=== PATIENT | female | born 1955 | race Two or more races ===

== ENCOUNTER 2017-12-06 18:41 | Emergency (ER) | payer SELFPAY ==
[~2017-12-06] VITALS: Ht 157.5 cm; Wt 77.7 kg
[2017-12-06] MEDS ORDERED: KETOROLAC TROMETH 30 MG/ML 1ML VIAL IV ONE (21:00)
[2017-12-06 21:17] LABS: Basophils # (auto) 0.1 uL; Eosinophils # (auto) 0.1 uL; Lymphocytes # (auto) 1.1 uL
[2017-12-06 21:18] LABS: Basophils % (auto) 1.3 % (0.0-2.0); Eosinophils % (auto) 1.4 % (0.0-7.0); Hematocrit 38.3 % (36.0-46.0); Hemoglobin 12.3 g/dL (12.2-16.2); Lymphocytes % (auto) 16.6 % (10.0-50.0); Mean Corpuscular Hemoglobin 25.4 pg (28.0-32.0); Mean Corpuscular Hgb Conc. 32.1 g/dL (32.0-36.0); Mean Corpuscular Volume 79.1 fL (80.0-100.0); Monocytes # (auto) 0.7 uL; Monocytes % (auto) 9.7 % (0.0-12.0); Neutrophils # (auto) 4.8 uL; Nucleated Red Blood Cells % 0.1 %; Platelet Count (auto) 222 10^3/uL (140-450); Red Blood Cells 4.84 10^6/uL (4.0-5.20); Red Cell Distribution Width 18.4 % (11.8-14.3); White Blood Cell 6.8 10^3/uL (4.4-10.8)
[2017-12-06 21:34] LABS: Albumin 3.6 g/dL (3.4-5.0); Anion Gap 11 (5-15); Blood Urea Nitrogen 46 mg/dL (7-18); Calcium 9.1 mg/dL (8.5-10.1); Carbon Dioxide 26 mmol/L (21-32); Chloride 88 mmol/L (98-107); Glucose 361 mg/dL (74-106); Sodium 125 mmol/L (136-145)
[2017-12-06 21:39] LABS: Alanine Aminotransferase 22 U/L (13-56); Alkaline Phosphatase 148 U/L (45-117); Aspartate Aminotransferase 24 U/L (15-37); BUN/Creatinine Ratio 31.9; Bilirubin, Total 0.8 mg/dL (0.2-1.0); GFR African American 47 mL/min; GFR Non-African American 39 mL/min; Total Protein 7.9 g/dL (6.4-8.2)
[2017-12-06 23:14] VITALS: BP 95/71
[2017-12-06] MEDS ORDERED: SODIUM CHLORIDE 0.9% 1,000 ML IV ONE (23:15)
== END 2017-12-07 00:08 | disposition home or self-care (01) ==
LOC: ER 18:41
DX: S22.31XA Fracture of one rib, right side, initial encounter for closed fracture (principal); M19.90 Unspecified osteoarthritis, unspecified site; M25.552 Pain in left hip; E11.9 Type 2 diabetes mellitus without complications; I10 Essential (primary) hypertension; I25.2 Old myocardial infarction; Z86.73 Personal history of transient ischemic attack (TIA), and cerebral infarction without residual deficits; W01.0XXA Fall on same level from slipping, tripping and stumbling without subsequent striking against object, initial encounter; Y93.89 Activity, other specified; Y99.8 Other external cause status; Y92.89 Other specified places as the place of occurrence of the external cause
CPT/HCPCS: 36415; 70450; 71045; 73030; 73502; 73562; 80053; 83880; 84484; 85025; 96374; 99285; J1885; J7030; 96361

== ENCOUNTER 2018-04-11 07:21 | Inpatient (IN) | payer MEDICAID ==
[~2018-04-11] VITALS: Ht 165.1 cm; Wt 99.1 kg
[~2018-04-11 07:21] MED LIST: ASPI-231 PO; ATOR20TA PO; CAR3125T PO; FURO40TA PO; LEVEMIR SC; PANT40TA2 PO
[2018-04-11] MEDS ORDERED: ASPirin 81 mg TAB PO ONE (07:45)
[2018-04-11] MEDS ORDERED: NITROGLYCERIN 0.4 MG SL TAB SL ONE (07:45)
[2018-04-11 08:23] LABS: Basophils # (auto) 0 uL; Eosinophils # (auto) 0 uL; Mean Corpuscular Hemoglobin 26.1 pg (28.0-32.0); White Blood Cell 7.9 10^3/uL (4.4-10.8)
[2018-04-11 08:25] LABS: Basophils % (auto) 0.4 % (0.0-2.0); Eosinophils % (auto) 0.4 % (0.0-7.0); Lymphocytes % (auto) 12.6 % (10.0-50.0); Mean Corpuscular Hgb Conc. 29.7 g/dL (32.0-36.0); Mean Corpuscular Volume 87.9 fL (80.0-100.0); Monocytes % (auto) 12.7 % (0.0-12.0); Neutrophils # (auto) 5.8 uL; Neutrophils % (auto) 73.9 % (37.0-80.0); Nucleated Red Blood Cells % 0.7 %
[2018-04-11 08:29] LABS: Platelet Count (auto) 174 10^3/uL (140-450); Red Cell Distribution Width 25.7 % (11.8-14.3)
[2018-04-11 08:35] LABS: INR 2.26 (0.9-1.15); Partial Thromboplastin Time 25.4 sec (23.78-33.04); Prothrombin Time 23.1 sec (9.27-12.13)
[2018-04-11 08:40] LABS: Calcium 9.1 mg/dL (8.5-10.1)
[2018-04-11 08:44] LABS: BUN/Creatinine Ratio 31.7; Bilirubin, Total 1.9 mg/dL (0.2-1.0); Total Protein 6.9 g/dL (6.4-8.2)
[2018-04-11 08:58] LABS: Potassium 5.7 mmol/L (3.5-5.1)
[2018-04-11] MEDS ORDERED: ALBUTEROL SULF 2.5 MG/0.5ML(0.5%) NEB SOLN NEB STA (09:09)
[2018-04-11] MEDS ORDERED: DEXTROSE (50%) 50ML SYRG IV ONE (09:15)
[2018-04-11] MEDS ORDERED: SODIUM BICARBONATE 8.4% INJ 50ML SYRINGE IV ONE (09:15)
[2018-04-11] MEDS ORDERED: CALCIUM GLUC 4.65meq/50ml D5AE 50 ML IV ONE (09:15)
[2018-04-11] MEDS ORDERED: InsuLIN REG 1unit/0.01ml Soln (100units/ml) IV ONE (09:15)
[2018-04-11] MEDS ORDERED: NITROGLYCERIN 0.4 MG SL TAB SL PRN (09:30)
[2018-04-11] MEDS ORDERED: DEXTROSE (50%) 50ML SYRG IV PRN (09:30)
[2018-04-11] MEDS ORDERED: MORPHINE SULFATE 4 MG/ML SYR/VIAL IV PRN (09:30)
[2018-04-11] MEDS: ASPirin-EC 81 mg tab PO SCH (10:00)
[2018-04-11] MEDS: CARVEDILOL 3.125 MG TAB PO SCH ×2 (10:15→21:54)
[2018-04-11] MEDS: PANTOPRAZOLE 40 MG TAB PO SCH (10:30)
[2018-04-11] MEDS: ACCU-CHEK COMFORT CURVE STRIP VI SCH ×3 (11:36→21:55)
[2018-04-11] MEDS: FUROSEMIDE 20 MG TAB PO SCH (11:40)
[2018-04-11] MEDS: InsuLIN REG 1unit/0.01ml Soln (100units/ml) SC SCH ×3 (11:40→21:55)
--- NOTE | 2018-04-11 12:43 | NUR ---
Telemetry admit from DYLLAN HINDSREINALDO admitted to Telemetry unit Room 295B. No report received. Patient oriented to Marilu June, RN primary RN, unit, room, bed, and unit policies regarding patient care and visiting hours. Patient now on continuous telemetry monitoring, tele box #HC 3 and telemetry reading on arrival to unit is SR 76 with BBB. Patient placed on bedside oxygen, weighed by bedscale and encouraged to call if she nees something. All questions and concerns addressed, patient verbalized understanding. Note: Patient speaks only Polish.
[2018-04-11 13:00] VITALS: BP 94/49
--- NOTE | 2018-04-11 13:00 | NUR ---
Patient has 2+ edema and redness to bilateral lower extremities. Skin to back, sacrum, and buttocks is clear.
--- NOTE | 2018-04-11 13:01 | NUR ---
Patient is wearing a diaper from home. Diaper is soaked with urine. Patient cleaned, repositioned. Call light in reach. Will continue to monitor.
[2018-04-11 14:59] VITALS: BP 94/49
--- NOTE | 2018-04-11 17:53 | NUR ---
Patient incontinent of urine. Patient cleaned and repositioned. Full linen change done. Call light in reach. Will continue to monitor.
[2018-04-11] MEDS: traMADol HCL 50 MG TAB PO PRN (19:03)
--- NOTE | 2018-04-11 19:45 | NUR ---
ASSUMED CARE, PT. AWAKE, [place]AST [place] SPEAK ONLY, NO C/O PAIN, NO SOB.
[2018-04-11] MEDS: ATORVASTATIN 20 MG TAB PO SCH (21:55)
[2018-04-11 22:05] VITALS: BP 93/56
[2018-04-12 05:33] LABS: Basophils # (auto) 0.1 uL; Eosinophils # (auto) 0.1 uL; Hemoglobin 10.2 g/dL (12.2-16.2); Mean Corpuscular Volume 84.5 fL (80.0-100.0); Monocytes # (auto) 0.6 uL
[2018-04-12 05:37] VITALS: BP 91/77
[2018-04-12 05:37] LABS: Basophils % (auto) 1.2 % (0.0-2.0); Eosinophils % (auto) 1.8 % (0.0-7.0); Hematocrit 32.5 % (36.0-46.0); Lymphocytes # (auto) 1.2 uL; Lymphocytes % (auto) 18.6 % (10.0-50.0); Mean Corpuscular Hemoglobin 26.6 pg (28.0-32.0); Mean Corpuscular Hgb Conc. 31.5 g/dL (32.0-36.0); Monocytes % (auto) 9.6 % (0.0-12.0); Neutrophils # (auto) 4.3 uL; Neutrophils % (auto) 68.8 % (37.0-80.0); Platelet Count (auto) 203 10^3/uL (140-450); Red Blood Cells 3.84 10^6/uL (4.0-5.20); White Blood Cell 6.2 10^3/uL (4.4-10.8)
[2018-04-12 05:51] LABS: Calcium 8.9 mg/dL (8.5-10.1)
[2018-04-12 05:58] LABS: Potassium 6.1 mmol/L (3.5-5.1); Uric Acid 11.4 mg/dL (2.6-6.0)
--- NOTE | 2018-04-12 05:59 | NUR ---
lab. called, pt. k- 6.1, called up hospitalist, waiting to call back.
[2018-04-12] MEDS: InsuLIN REG 1unit/0.01ml Soln (100units/ml) SC SCH ×4 (06:10→21:27)
[2018-04-12] MEDS: INSULIN LANTUS (GLARGINE) 1 /0.01ml (100units/ml) SC SCH (06:10)
[2018-04-12] MEDS: ACCU-CHEK COMFORT CURVE STRIP VI SCH ×4 (06:11→21:27)
--- NOTE | 2018-04-12 06:33 | NUR ---
still waiting for hospitalist to call back, re: pt. k- 6.1
--- NOTE | 2018-04-12 07:05 | NUR ---
hosp. called back, no order made, endorsed to preet agosto.
[2018-04-12] MEDS ORDERED: SODIUM BICARBONATE 8.4 % INJ 50ML VIAL IV ONE (07:15)
[2018-04-12] MEDS ORDERED: DEXTROSE (50%) 50ML SYRG IV ONE (07:15)
[2018-04-12] MEDS ORDERED: CALCIUM GLUC 4.65meq/50ml D5AE 50 ML IV ONE (07:15)
[2018-04-12] MEDS ORDERED: InsuLIN REG 1unit/0.01ml Soln (100units/ml) IV ONE (07:15)
[2018-04-12] MEDS ORDERED: SODIUM POLYSTYRENE SULF 15GM/60ml SUSP or POWDER PO ONE (07:15)
[2018-04-12] MEDS ORDERED: SODIUM POLYSTYRENE SULF 15 GM POWDER PO ONE (07:30)
--- NOTE | 2018-04-12 08:30 | NUR ---
Opening Shift Note Assumed care of patient, awake and alert. No S/S of distress/SOB or pain. Skin is warm and dry to touch, no s/s of hyperglycemia or hypoglycemia noted. Instructed on POC and to call for assist PRN, will continue to monitor for changes Q1hr and PRN.
[2018-04-12 09:00] VITALS: BP 87/62
[2018-04-12] MEDS: ASPirin-EC 81 mg tab PO SCH (09:19)
[2018-04-12] MEDS: FUROSEMIDE 20 MG TAB PO SCH (09:19)
[2018-04-12] MEDS: PANTOPRAZOLE 40 MG TAB PO SCH (09:19)
[2018-04-12] MEDS: CARVEDILOL 3.125 MG TAB PO SCH ×2 (09:19→21:26)
--- NOTE | 2018-04-12 11:30 | NUR ---
Dr. Dixon at bedside.
--- NOTE | 2018-04-12 12:00 | NUR ---
IV insertion IV access obtained, via clean sterile technique by inserting 22 gauge catheter at after attempt(s). IV secured properly. No trauma to site. Patient tolerated well. NOTE:
--- NOTE | 2018-04-12 12:00 | NUR ---
Dr. Iyer at bedside, will perform LHC tomorrow. Explained to the patient she will have to NPO AMN, patient verbalized understanding.
--- NOTE | 2018-04-12 14:00 | NUR ---
Dr. Rocha at bedside.
[2018-04-12 16:58] VITALS: BP 87/63
--- NOTE | 2018-04-12 19:45 | NUR ---
assumed care, pt. awake, eating her dinner, no c/o pain, repositioned pt. no sob.
[2018-04-12] MEDS: ATORVASTATIN 20 MG TAB PO SCH (21:27)
[2018-04-12 22:03] VITALS: BP 90/69
[2018-04-13 05:42] VITALS: BP 95/62
[2018-04-13] MEDS: InsuLIN REG 1unit/0.01ml Soln (100units/ml) SC SCH ×4 (06:08→21:59)
[2018-04-13] MEDS: INSULIN LANTUS (GLARGINE) 1 /0.01ml (100units/ml) SC SCH (06:09)
[2018-04-13] MEDS: ACCU-CHEK COMFORT CURVE STRIP VI SCH ×4 (06:09→21:27)
[2018-04-13 06:32] LABS: Basophils # (auto) 0 uL; Eosinophils # (auto) 0.1 uL; Hematocrit 32.4 % (36.0-46.0); Lymphocytes # (auto) 0.9 uL; White Blood Cell 5.5 10^3/uL (4.4-10.8)
[2018-04-13 06:39] LABS: Basophils % (auto) 0.7 % (0.0-2.0); Eosinophils % (auto) 1.6 % (0.0-7.0); Mean Corpuscular Hemoglobin 26.2 pg (28.0-32.0); Mean Corpuscular Hgb Conc. 30.9 g/dL (32.0-36.0); Monocytes # (auto) 0.6 uL; Monocytes % (auto) 11.1 % (0.0-12.0); Neutrophils # (auto) 3.9 uL; Neutrophils % (auto) 70.6 % (37.0-80.0); Nucleated Red Blood Cells % 0.9 %; Platelet Count (auto) 158 10^3/uL (140-450); Red Blood Cells 3.81 10^6/uL (4.0-5.20)
[2018-04-13 06:45] LABS: Potassium 3.7 mmol/L (3.5-5.1)
[2018-04-13 06:51] LABS: Albumin 2.9 g/dL (3.4-5.0); BUN/Creatinine Ratio 41.4; Bilirubin, Direct 1.1 mg/dL (0-0.2); Bilirubin, Total 1.6 mg/dL (0.2-1.0); Calcium 8.6 mg/dL (8.5-10.1); Phosphorus 4.1 mg/dL (2.5-4.90); Total Protein 6.5 g/dL (6.4-8.2)
--- NOTE | 2018-04-13 07:30 | NUR ---
Opening Shift Note Assumed care of patient, awake and alert x3. Unaware of situation. Patient follow commands and answers questions. No S/S of distress/SOB pt denies pain. Instructed on POC and to call for assist PRN, will continue to monitor for changes Q1hr and PRN. Fall precautions in place per protocol and pressure areas off loaded on pillows. Will cont care
[2018-04-13 09:00] VITALS: BP 89/64
[2018-04-13] MEDS: PANTOPRAZOLE 40 MG TAB PO SCH (10:00)
[2018-04-13] MEDS ORDERED: ENOXAPARIN SOD 40 MG/0.4 ML SYRINGE SC SCH ×2 (10:00)
[2018-04-13] MEDS: CARVEDILOL 3.125 MG TAB PO SCH ×2 (10:00→20:59)
[2018-04-13] MEDS: FUROSEMIDE 20 MG TAB PO SCH (10:00)
[2018-04-13] MEDS: ASPirin-EC 81 mg tab PO SCH (10:38)
--- NOTE | 2018-04-13 12:56 | NUR ---
Patient off floor taken down to culture media laboratory assistant care endorsed to Smitha oviedo. No distress noted on departure or sob.
[2018-04-13] MEDS ORDERED: ANGIOMAX 250 MG VIAL IV ONE (13:02)
[2018-04-13] MEDS ORDERED: fentaNYL CITRATE 100 MCG/2 ML VL ONE (13:02)
[2018-04-13] MEDS ORDERED: MIDAZOLAM HCL 1MG/1ML-2 ML VIAL ONE (13:02)
[2018-04-13] MEDS ORDERED: SODIUM CHL 0.9% 50 ML ONE (13:02)
[2018-04-13] MEDS ORDERED: ATROPINE SULF 1 MG/10ml SYR ONE (13:04)
[2018-04-13] MEDS ORDERED: EPINEPHrine HCL 1 MG/10 ML SYRG ONE (13:04)
[2018-04-13] MEDS ORDERED: LIDOCAINE 2%HCL (LOCAL ANESTH.) INJ 20ML MDV ONE (13:27)
[2018-04-13] MEDS ORDERED: IOHEXOL 350 MG/ML 100ML IJ ONE (13:27)
[2018-04-13 13:30] VITALS: BP 95/67
[2018-04-13] MEDS ORDERED: DOPamine 1600MCG/ML D5W 0 ML IV ONE (14:02)
[2018-04-13] MEDS ORDERED: NOREPINEPHRINE 8 MG/250ML KIT 0 ML IV ONE (14:02)
[2018-04-13] MEDS ORDERED: IODIXANOL 320MG/ML 100ML BTL IV ONE (14:05)
[2018-04-13] MEDS ORDERED: CLOPIDOGREL 300 MG TAB ONE (14:43)
--- NOTE | 2018-04-13 16:10 | NUR ---
Patient back from receiver/laborer patient back from process laboratory specialist, dressing to left groin noted c/d/i. Dorsalis pedis pulses palpable bilat. VSS. No s/s of distress or sob noted. Bed alarm on at all times. Patient instructed to not get up or bend leg at this time until 1644 as instructed by Wendy process laboratory specialist rn. Patient verbalized understanding. Will cont to monitor
[2018-04-13 17:32] VITALS: BP 86/66
[2018-04-13] MEDS ORDERED: SODIUM CHLORIDE 0.9% 500 ML IV ONE (18:45)
--- NOTE | 2018-04-13 19:10 | NUR ---
Patient care endorsed endorsed care to Anastacia oviedo, patient laying in bed in no acute distress or sob. Dressing assessed at bedside noted c/d/i. Call light within reach.
[2018-04-13] MEDS ORDERED: SODIUM CHLORIDE 0.9% 1,000 ML IV ONE (19:45)
[2018-04-13] MEDS: ATORVASTATIN 20 MG TAB PO SCH (21:26)
[2018-04-13] MEDS: traMADol HCL 50 MG TAB PO PRN (21:26)
[2018-04-13 21:30] VITALS: BP 87/54
[2018-04-14 05:00] VITALS: BP 100/65
[2018-04-14] MEDS: ACCU-CHEK COMFORT CURVE STRIP VI SCH ×4 (05:41→21:43)
[2018-04-14] MEDS: traMADol HCL 50 MG TAB PO PRN (06:04)
[2018-04-14] MEDS: INSULIN LANTUS (GLARGINE) 1 /0.01ml (100units/ml) SC SCH (06:05)
[2018-04-14] MEDS: InsuLIN REG 1unit/0.01ml Soln (100units/ml) SC SCH ×4 (06:05→21:44)
[2018-04-14 07:42] LABS: Eosinophils # (auto) 0.1 uL; Nucleated Red Blood Cells % 1.5 %; White Blood Cell 6.3 10^3/uL (4.4-10.8)
[2018-04-14 07:44] LABS: Basophils # (auto) 0 uL; Basophils % (auto) 0.4 % (0.0-2.0); Eosinophils % (auto) 0.9 % (0.0-7.0); Hematocrit 35.3 % (36.0-46.0); Hemoglobin 11.1 g/dL (12.2-16.2); Lymphocytes # (auto) 1.4 uL; Lymphocytes % (auto) 21.8 % (10.0-50.0); Mean Corpuscular Hemoglobin 26.9 pg (28.0-32.0); Mean Corpuscular Hgb Conc. 31.4 g/dL (32.0-36.0); Mean Corpuscular Volume 85.7 fL (80.0-100.0); Monocytes # (auto) 0.8 uL; Monocytes % (auto) 12.1 % (0.0-12.0); Neutrophils # (auto) 4.1 uL; Neutrophils % (auto) 64.8 % (37.0-80.0); Platelet Count (auto) 171 10^3/uL (140-450); Red Blood Cells 4.12 10^6/uL (4.0-5.20)
[2018-04-14 07:45] LABS: Red Cell Distribution Width 25.4 % (11.8-14.3)
[2018-04-14 07:59] LABS: Albumin 2.5 g/dL (3.4-5.0); Calcium 8.1 mg/dL (8.5-10.1); Potassium 4.1 mmol/L (3.5-5.1)
[2018-04-14 08:04] LABS: BUN/Creatinine Ratio 37.4; Bilirubin, Total 1.8 mg/dL (0.2-1.0); Total Protein 6.6 g/dL (6.4-8.2)
[2018-04-14 09:00] VITALS: BP 90/63
[2018-04-14] MEDS: ONDANSETRON HCL 4 MG/2 ML VIAL IV PRN ×2 (09:46→18:34)
[2018-04-14] MEDS: ASPirin-EC 81 mg tab PO SCH (09:47)
[2018-04-14] MEDS: CLOPIDOGREL BISULFATE 75 MG TAB PO SCH (09:47)
[2018-04-14] MEDS: PANTOPRAZOLE 40 MG TAB PO SCH (09:47)
[2018-04-14] MEDS: FUROSEMIDE 20 MG TAB PO SCH (09:48)
[2018-04-14] MEDS: CARVEDILOL 3.125 MG TAB PO SCH ×2 (09:48→21:43)
[2018-04-14 12:51] VITALS: BP 79/61
--- NOTE | 2018-04-14 13:23 | NUR ---
Spoke to Certified Performance Technologist MD Iyer aware of patients status including abnormal labs, VS including decreased BP and diuretics have been held. Per MD only hold diuretics is SBP <80mmHg. New orders to start patient on Dobutamine drip 3mc/kg/min. Will medicate as ordered
--- NOTE | 2018-04-14 14:42 | NUR ---
Weight pt assisted out of bed with P.T. Bed zero'd out. [facility]. Awaiting Dobutamine drip at this time
[2018-04-14] MEDS ORDERED: ANGIOMAX 250 MG VIAL IV ONE (14:48)
[2018-04-14] MEDS: DOBUTamine 1000MCG/ML 250 ML IV SCH (15:40)
[2018-04-14 16:58] VITALS: BP 89/63
--- NOTE | 2018-04-14 17:15 | NUR ---
Urine sample sent as ordered
[2018-04-14 18:29] LABS: Urine Bacteria FEW /hpf (None Seen); Urine Blood 2+ /uL (Negative); Urine Specific Gravity 1.031 (1.001-1.035); Urine WBC 79 /hpf (0 - 5); Urine WBC Clumps PRESENT /hpf (None Seen)
--- NOTE | 2018-04-14 18:35 | NUR ---
Spoke to Nephro MD Dixon at bedside, aware of patients status. New orders received for MD Gregory aware of pt's decreased BP and states pt needs dose ordered. Will medicate as ordered.
[2018-04-14] MEDS ORDERED: BUMETANIDE (0.25 MG/ML) INJ 10ML IV ONE (18:45)
--- NOTE | 2018-04-14 19:05 | NUR ---
Patient care endorsed endorsed care to Ronan oviedo. Patient sitting up in bed in no acute distress or sob noted. Call light within reach. Pt medicated with Bumex as ordered pt instructed to call for any s/s of hypotension. Pt verbalized understanding.
[2018-04-14] MEDS: ATORVASTATIN 20 MG TAB PO SCH (21:43)
[2018-04-14 21:48] VITALS: BP 96/66
[2018-04-15] MEDS ORDERED: diphenhdrAMINE HCL 25 MG CAP PO ONE (00:45)
[2018-04-15] MEDS: traMADol HCL 50 MG TAB PO PRN ×2 (01:46→10:22)
[2018-04-15 05:43] VITALS: BP 93/67
[2018-04-15] MEDS: DOBUTamine 1000MCG/ML 250 ML IV SCH (06:36)
[2018-04-15] MEDS: ACCU-CHEK COMFORT CURVE STRIP VI SCH ×3 (06:58→17:00)
[2018-04-15] MEDS: INSULIN LANTUS (GLARGINE) 1 /0.01ml (100units/ml) SC SCH (06:59)
[2018-04-15] MEDS: InsuLIN REG 1unit/0.01ml Soln (100units/ml) SC SCH ×4 (06:59→22:00)
[2018-04-15 07:13] LABS: Albumin 2.8 g/dL (3.4-5.0); Potassium 3.4 mmol/L (3.5-5.1)
--- NOTE | 2018-04-15 07:20 | NUR ---
Opening Shift Note Assumed care of patient, awake and alert. No S/S of distress/SOB or pain. Instructed on POC and to call for assist PRN. Fall precs in place per protocol. Call light within reach. Will continue to monitor for changes Q1hr and PRN.
[2018-04-15 07:27] LABS: Total Protein 6.6 g/dL (6.4-8.2)
[2018-04-15 09:00] VITALS: BP 88/62
[2018-04-15] MEDS: CLOPIDOGREL BISULFATE 75 MG TAB PO SCH (10:19)
[2018-04-15] MEDS: ASPirin-EC 81 mg tab PO SCH (10:19)
[2018-04-15] MEDS: FUROSEMIDE 20 MG TAB PO SCH (10:21)
[2018-04-15] MEDS: CARVEDILOL 3.125 MG TAB PO SCH ×2 (10:38→21:34)
[2018-04-15] MEDS: PANTOPRAZOLE 40 MG TAB PO SCH (10:38)
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
--- NOTE | 2018-04-15 12:26 | NUR ---
Urine bacterial Spoke to Juan Carlos in lab, he will process urine bacterial as ordered
[2018-04-15 13:00] VITALS: BP 98/72
[2018-04-15 13:24] LABS: Protein, Urine 34.3 mg/dL (0.0-11.9)
--- NOTE | 2018-04-15 14:23 | NUR ---
NUTRITION ASSESSMENT NOTES Please refer to link notes of nutrition screen form filed under the intervention section of the plan of care for further details. Est. Needs: 1750 kcal to 2150 kcal (20-25 kcal/kgBW), 86 gms to 103 gms pro (1.0-1.2 gms/kgBW). Will continue to monitor pertinent labs and reassess nutrient need prn Thank you. Addendum: 04/15/18 at [address] Amended: Links added.
[2018-04-15] MEDS: ONDANSETRON HCL 4 MG/2 ML VIAL IV PRN (16:51)
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
[2018-04-15 17:06] VITALS: BP 98/63
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
[2018-04-15] MEDS: BUMETANIDE (0.25MG/ML) 4 ML VIAL IV SCH (18:09)
--- NOTE | 2018-04-15 19:00 | NUR ---
Patient care endorsed endorsed care to Ally rn, patient laying in bed with fall precs in place per protocol and call light within reach. No s/s of acute distress or sob noted.
[2018-04-15] MEDS: ATORVASTATIN 20 MG TAB PO SCH (22:31)
[2018-04-15] MEDS: HEPARIN SODIUM (PORCINE) 5000 UNITS/ML 1ML VIAL SC SCH (22:34)
[2018-04-16] MEDS: DOBUTamine 1000MCG/ML 250 ML IV SCH ×2 (00:36→15:38)
[2018-04-16] MEDS: ACCU-CHEK COMFORT CURVE STRIP VI SCH ×5 (00:43→22:06)
[2018-04-16 05:43] VITALS: BP 92/74
[2018-04-16] MEDS: BUMETANIDE (0.25MG/ML) 4 ML VIAL IV SCH ×2 (06:57→18:15)
[2018-04-16] MEDS: HEPARIN SODIUM (PORCINE) 5000 UNITS/ML 1ML VIAL SC SCH ×3 (06:58→22:05)
[2018-04-16] MEDS: InsuLIN REG 1unit/0.01ml Soln (100units/ml) SC SCH ×4 (07:00→22:00)
[2018-04-16] MEDS: INSULIN LANTUS (GLARGINE) 1 /0.01ml (100units/ml) SC SCH (07:00)
--- NOTE | 2018-04-16 08:00 | NUR ---
Opening Shift Note Assumed care of patient, awake and alert. No S/S of distress/SOB or pain. Instructed on POC and to call for assist PRN, will continue to monitor for changes Q1hr and PRN.
[2018-04-16 08:49] VITALS: BP 96/58
[2018-04-16] MEDS: CARVEDILOL 3.125 MG TAB PO SCH ×2 (10:00→22:00)
[2018-04-16] MEDS: CLOPIDOGREL BISULFATE 75 MG TAB PO SCH (10:26)
[2018-04-16] MEDS: PANTOPRAZOLE 40 MG TAB PO SCH (10:26)
[2018-04-16] MEDS: ASPirin-EC 81 mg tab PO SCH (10:26)
[2018-04-16] MEDS: FLUCONAZOLE 200MG/100ML 100 ML IV SCH (10:26)
--- NOTE | 2018-04-16 11:00 | NUR ---
POTASSIUM LEVEL DR MAURER MADE AWARE OF PT'S POTASSIUM LEVEL 3.4 FROM YESTERDAY. NO POTASSIUM REPLACEMENT WAS NOTED.
--- NOTE | 2018-04-16 11:30 | NUR ---
Dozier catheter insertion Patient assessed and determined to be in need of dozier catheter. Order obtained from MD. Patient educated on catheter and reason for insertion. All questions answered. Dozier catheter 16 guage Maltese inserted with clean sterile technique. Patient tolerated well.
--- NOTE | 2018-04-16 11:45 | NUR ---
@[address] [place] [address] was placed by student RN.
--- NOTE | 2018-04-16 12:13 | NUR ---
@1133 - Dr. Rocha is at bedside with the patient.
[2018-04-16] MEDS ORDERED: HEPARIN SODIUM (PORCINE) 5000 UNITS/ML 1ML VIAL ONE (14:04)
--- NOTE | 2018-04-16 15:00 | NUR ---
PAGED DR MAURER RE: POTASSIUM LEVEL. WAITING FOR CALL BACK.
--- NOTE | 2018-04-16 16:00 | NUR ---
TURN/ REPOSITIONING PT CALLED STATING THAT SHE WAS SUPPOSED TO TURN EVERY 2 HOURS AND NEED SOMEONE TO TURN HER. UPON ASSISTING PT, IT WAS NOTED THAT PT IS ABLE TO TURN HERSELF. SOON WE TRIED TO TURN HER PT TURNED HERSELF ALL THE WAY TO HER RIGHT SIDE WITHOUT ANY ASSISTANCE. PT WAS INFORMED THAT SINCE SHE CAN TURN ON HER OWN, SHE NEEDS TO DO IT OFTEN WITHOUT WAITING FOR ANYONE TO TURN HER. PT VERBALIZED UNDERSTANDING.
[2018-04-16 17:03] VITALS: BP 98/52
--- NOTE | 2018-04-16 18:30 | NUR ---
PAGED HOSPITALIST RE: POTASSIUM LEVEL. SPOKE TO DR. ARTEAGA. NEW ORDER RECEIVED.
[2018-04-16] MEDS ORDERED: POTASSIUM CHL 20 Meq TABLET PO ONE (20:00)
--- NOTE | 2018-04-16 20:00 | NUR ---
Opening Shift Note Assumed care of patient, patient is awake and alert x4, primarily Citizen Of [place] speaking. No S/S of distress/SOB or pain on 2LNC. Instructed on POC and to call for assist PRN, will continue to monitor for changes Q1hr and PRN. Call light within reach. Bed alarm remains on. Patient with Bowens catheter patent and draining to gravity. SCD's in place to bilateral lower extremities, with Pershing boots in place. Patient on turn every 2 hour schedule with minimum assist. Dobutamine drip infusing to left wrist per orders, IV is patent and asymptomatic. Left groin site is benign s/p LHC on 04/13, no bruising or bleeding noted. Ecchymosis to patients abdomen and bilateral upper extremities noted. 3+ pitting edema to patients abdomen, back side and lower extremities. Will continue to monitor.
[2018-04-16 22:00] VITALS: BP 104/64
[2018-04-16] MEDS: ATORVASTATIN 20 MG TAB PO SCH (22:03)
[2018-04-17 05:00] VITALS: BP 91/61
--- NOTE | 2018-04-17 05:00 | NUR ---
TOTAL LINEN CHANGE PROVIDED TO PATIENT. NEW GOWN PROVIDED. PATIENT REQUESTED TO HAVE LINENS CHANGED. PATIENT BACKSIDE CLEANED AND ZGUARD APPLIED TO SACRUM, NO WOUNDS PRESENT. PATIENT TURNED TO RIGHT SIDE AND PILLOW PLACED ON BACK FOR SUPPORT. LOPEZ CATHETER REMAINS IN PLACE PATENT AND DRAINING TO GRAVITY, NASRIN CARE PROVIDED. BED ALARM REMAINS ON, CALL LIGHT WITHIN REACH.
--- NOTE | 2018-04-17 05:20 | NUR ---
PATIENT REFUSING TO WEAR REJI BOOTS. PATIENT STATES SHE WANTS THEM TO BE TAKEN OFF. INSTRUCTED PATIENT ON IMPORTANCE OF REJI BOOTS TO PREVENT WOUNDS, PATIENT VERBALIZES UNDERSTANDING AND STATES SHE STILL WANTS THEM REMOVED OR "I WILL TAKE THEM OFF MYSELF". REJI BOOTS REMOVED AT THIS TIME. JYOTI ANDERSEN AT BEDSIDE FOR TRANSLATION.
[2018-04-17] MEDS: BUMETANIDE (0.25MG/ML) 4 ML VIAL IV SCH ×2 (06:30→17:51)
[2018-04-17] MEDS: INSULIN LANTUS (GLARGINE) 1 /0.01ml (100units/ml) SC SCH (06:31)
[2018-04-17] MEDS: ACCU-CHEK COMFORT CURVE STRIP VI SCH ×4 (06:31→22:00)
[2018-04-17] MEDS: InsuLIN REG 1unit/0.01ml Soln (100units/ml) SC SCH ×4 (06:31→22:00)
[2018-04-17] MEDS: HEPARIN SODIUM (PORCINE) 5000 UNITS/ML 1ML VIAL SC SCH ×3 (06:32→22:30)
[2018-04-17 06:40] LABS: Basophils # (auto) 0 uL; Eosinophils # (auto) 0.1 uL; Hemoglobin 10.2 g/dL (12.2-16.2); Neutrophils # (auto) 3.4 uL
[2018-04-17 06:44] LABS: Basophils % (auto) 0.2 % (0.0-2.0); Eosinophils % (auto) 1.5 % (0.0-7.0); Hematocrit 33.4 % (36.0-46.0); Lymphocytes # (auto) 0.9 uL; Lymphocytes % (auto) 17.9 % (10.0-50.0); Mean Corpuscular Hemoglobin 25.9 pg (28.0-32.0); Mean Corpuscular Hgb Conc. 30.5 g/dL (32.0-36.0); Mean Corpuscular Volume 84.9 fL (80.0-100.0); Monocytes # (auto) 0.5 uL; Monocytes % (auto) 9.7 % (0.0-12.0); Neutrophils % (auto) 70.7 % (37.0-80.0); Nucleated Red Blood Cells % 0.4 %; Platelet Count (auto) 144 10^3/uL (140-450); Red Blood Cells 3.93 10^6/uL (4.0-5.20); White Blood Cell 4.8 10^3/uL (4.4-10.8)
[2018-04-17 06:51] LABS: Potassium 3.9 mmol/L (3.5-5.1)
[2018-04-17 06:59] LABS: Albumin 2.9 g/dL (3.4-5.0); BUN/Creatinine Ratio 30.5; Calcium 8.3 mg/dL (8.5-10.1); Total Protein 6.6 g/dL (6.4-8.2)
[2018-04-17 07:19] LABS: Red Cell Distribution Width 24.4 % (11.8-14.3)
[2018-04-17 08:00] VITALS: BP 84/57
--- NOTE | 2018-04-17 08:00 | NUR ---
Opening Shift Note Assumed care of patient, awake and alert and verbally responsive. Respiratory even and unlabored. No S/S of distress/SOB or pain. Skin is warm and dry to touch. Instructed on POC and to call for assist PRN, will continue to monitor for changes Q1hr and PRN.
--- NOTE | 2018-04-17 08:10 | NUR ---
Lab reported patient has ESBL in urine, VITALY Germain) notified , will inform hospitalist. Signed: 04/17/18 at 0819 by MARTA JAIN RN
--- NOTE | 2018-04-17 08:15 | NUR ---
Contact Isolation placed, patient notified.
[2018-04-17] MEDS: DOBUTamine 1000MCG/ML 250 ML IV SCH (09:36)
[2018-04-17] MEDS: FLUCONAZOLE 200MG/100ML 100 ML IV SCH (09:36)
[2018-04-17] MEDS: PANTOPRAZOLE 40 MG TAB PO SCH (09:36)
[2018-04-17] MEDS: CLOPIDOGREL BISULFATE 75 MG TAB PO SCH (09:36)
[2018-04-17] MEDS: ASPirin-EC 81 mg tab PO SCH (09:36)
[2018-04-17] MEDS: CARVEDILOL 3.125 MG TAB PO SCH ×2 (09:37→22:00)
--- NOTE | 2018-04-17 15:00 | NUR ---
Dr. Oropeza at bedside, made aware of patient has ESBL in urine.
[2018-04-17] MEDS ORDERED: ERTAPENEM SOD INJ 1 GM in SODIUM CHL 0.9% 50 ML IV ONE (16:15)
[2018-04-17 17:00] VITALS: BP 94/57
--- NOTE | 2018-04-17 17:38 | NUR ---
assessment Patient is a 62 year old female who is alert and oriented. Thi MONTES is translating for us. Prior to admission patient lived home with her daughter Darya and family and functioned with assistance. Patient has a fww and a wheelchair for home use. Patients daughter Darya is her caregiver. Per ss consult SNF placement. Patient has no payer source for rehab. Patient informed me her daughter treats her good, both patient and daughter get frustrated with the demands of patients new medical condition of not being able to ambulate. Daughter is getting tired and patient is angry. I have provided stephie Lackey with resources for coping skills and also [facility] resource for caregiver help. patient will return home on discharge. Addendum: 04/17/18 at 1743 by Destiney Mir Amended: Links added.
--- NOTE | 2018-04-17 19:30 | NUR ---
open note assumed care of pt, pt eyes closed breathing even and unlabored at time of entering room. pt on 2L NC, no s/s distress noted. IV to L hand running dobutamine @15.5ml/hr. dozier in place for i&o. call light in reach will round q1hr and as needed.
[2018-04-17 21:50] VITALS: BP 93/72
[2018-04-17] MEDS: ATORVASTATIN 20 MG TAB PO SCH (22:30)
[2018-04-18] VITALS (7 sets, daily range): BP systolic 78–103; BP diastolic 52–75
[2018-04-18] MEDS: DOBUTamine 1000MCG/ML 250 ML IV SCH ×3 (02:06→22:40)
[2018-04-18] MEDS: BUMETANIDE (0.25MG/ML) 4 ML VIAL IV SCH ×2 (06:27→17:55)
[2018-04-18] MEDS: InsuLIN REG 1unit/0.01ml Soln (100units/ml) SC SCH ×4 (06:28→22:13)
[2018-04-18] MEDS: INSULIN LANTUS (GLARGINE) 1 /0.01ml (100units/ml) SC SCH (06:28)
[2018-04-18] MEDS: HEPARIN SODIUM (PORCINE) 5000 UNITS/ML 1ML VIAL SC SCH ×3 (06:28→22:35)
[2018-04-18] MEDS: ACCU-CHEK COMFORT CURVE STRIP VI SCH ×4 (06:28→22:12)
--- NOTE | 2018-04-18 09:00 | NUR ---
Opening Shift Note Assumed care of patient, awake and alert. No S/S of distress/SOB or pain. Skin is warm and dry to touch, no s/s of hyperglycemia or hyperglycemia noted. Instructed on POC and to call for assist PRN, will continue to monitor for changes Q1hr and PRN.
[2018-04-18] MEDS: ERTAPENEM SOD INJ 1 GM in SODIUM CHL 0.9% 50 ML IV SCH (09:31)
[2018-04-18] MEDS: FLUCONAZOLE 200MG/100ML 100 ML IV SCH (09:31)
[2018-04-18] MEDS: ASPirin-EC 81 mg tab PO SCH (09:32)
[2018-04-18] MEDS: PANTOPRAZOLE 40 MG TAB PO SCH (09:32)
[2018-04-18] MEDS: CLOPIDOGREL BISULFATE 75 MG TAB PO SCH (09:32)
[2018-04-18] MEDS: CARVEDILOL 3.125 MG TAB PO SCH ×2 (09:37→21:55)
[2018-04-18] MEDS: SPIRONOLACTONE 25 MG TAB PO SCH (11:44)
--- NOTE | 2018-04-18 13:51 | NUR ---
Nutrition Follow-up Notes Wt.: 91.6 kg as of yesterday. Pt's asleep in isolation room, no immediate family member at bedside when rounded this morning. Pt's no signs of distress noted earlier, currently on Consistent Standard Carb: 60 gms/meal, Cardiac: Low Chol, Low Fat diet with fair PO intake aeb 60% ave. consumed meals in last 2.5 days. Est. Needs: 1750 kcal to 2150 kcal (20-25 kcal/kgBW), 86 gms to 103 gms pro (1.0-1.2 gms/kgBW). Will continue to monitor pertinent labs and reassess nutrient need prn Labs: POC GLuc 169 H; 04/17/18 Gluc 137 H, Na 130 L, Cl 92 L, BUN 43 H, Cr 1.41 H, Ca 8.3 L, Tot sarah 2.0 H, ALP 154 H, Alb 2.9 L; HbA1c 9.1 H Skin: Osbaldo scale 17, mod risk, pt's posterior sacrum slow to candie redness per jail keeper. GI: Pt had 1 BM this morning per jail keeper. PES: Altered nutrition related lab values r/t current/chronic medical condition aeb hyperglycemia, hyponatremia, hypokalemia,, hypochloremia, elev. renal labs, HbA1c, ALP, hyperbilirubinemia, hypocalcemia and mod hypoalbuminemia Obesity r/t food intake more than body requirement aeb 152% IBW, BMI 31.7 kg/m2 and increased body adiposity Will continue to monitor PO intake, skin status, pertinent labs and weight trend. F/u in 3 to 5 days. Rec.: 1.) If Albumin level continues trending down with improved renal labs, consider Prostat 1 pkt BID. 2.) Continue close supervision and feeding assistance with meals. 3.) If pt's PO intake inadequate (<75%), consider Glucerna Shakes 1 carton BID 4.) Refer to CDE/RD for further nutrition educ. and weight monitoring upon discharge. 5.) Continue current plan of care..
[2018-04-18] MEDS ORDERED: AMPICILLIN INJ 1 GM in SODIUM CHL 0.9% 50 ML IV ONE (14:30)
--- NOTE | 2018-04-18 20:34 | NUR ---
Received report from Kerri MONTES Assuming care of patient at this time, patient sleeping, no distress noted, respirations even and unlabored on 2L NC. Call light within reach, patient on contact isolation for esbl urine
[2018-04-18] MEDS: AMPICILLIN INJ 1 GM in SODIUM CHL 0.9% 50 ML IV SCH (22:06)
[2018-04-18] MEDS: ATORVASTATIN 20 MG TAB PO SCH (22:12)
[2018-04-18] MEDS: ONDANSETRON HCL 4 MG/2 ML VIAL IV PRN (22:35)
--- NOTE | 2018-04-18 22:35 | NUR ---
Rounds Patient awake and alert x4. Patient complains of nausea, medicated as ordered. No S/S of distress/SOB, denies pain. Will continue to monitor changes q1hr and PRN.
[2018-04-19] MEDS: AMPICILLIN INJ 1 GM in SODIUM CHL 0.9% 50 ML IV SCH ×4 (02:40→21:42)
--- NOTE | 2018-04-19 02:46 | NUR ---
Rounds Patient sleeping, respirations even and unlabored. No S/S of distress/SOB on room air. Will continue to monitor changes q1hr and PRN.
[2018-04-19 05:00] VITALS: BP 100/71
[2018-04-19] MEDS: HEPARIN SODIUM (PORCINE) 5000 UNITS/ML 1ML VIAL SC SCH ×3 (06:00→22:27)
[2018-04-19 06:35] LABS: Basophils # (auto) 0 uL; Eosinophils # (auto) 0.1 uL; Mean Corpuscular Volume 82.8 fL (80.0-100.0); Monocytes # (auto) 0.5 uL
[2018-04-19 06:37] LABS: Basophils % (auto) 0.4 % (0.0-2.0); Eosinophils % (auto) 1.9 % (0.0-7.0); Hematocrit 30.9 % (36.0-46.0); Hemoglobin 9.8 g/dL (12.2-16.2); Lymphocytes % (auto) 21.3 % (10.0-50.0); Mean Corpuscular Hemoglobin 26.3 pg (28.0-32.0); Mean Corpuscular Hgb Conc. 31.7 g/dL (32.0-36.0); Monocytes % (auto) 11.6 % (0.0-12.0); Neutrophils % (auto) 64.8 % (37.0-80.0); Nucleated Red Blood Cells % 0.2 %; Platelet Count (auto) 144 10^3/uL (140-450); Red Blood Cells 3.73 10^6/uL (4.0-5.20); White Blood Cell 4.6 10^3/uL (4.4-10.8)
[2018-04-19] MEDS: INSULIN LANTUS (GLARGINE) 1 /0.01ml (100units/ml) SC SCH (06:38)
[2018-04-19] MEDS: InsuLIN REG 1unit/0.01ml Soln (100units/ml) SC SCH ×4 (06:38→21:17)
[2018-04-19] MEDS: ACCU-CHEK COMFORT CURVE STRIP VI SCH ×4 (06:39→21:17)
[2018-04-19 06:41] LABS: Red Cell Distribution Width 24.5 % (11.8-14.3)
[2018-04-19] MEDS: BUMETANIDE (0.25MG/ML) 4 ML VIAL IV SCH ×2 (06:42→18:00)
[2018-04-19 06:48] LABS: BUN/Creatinine Ratio 27.3; Calcium 8.5 mg/dL (8.5-10.1); Magnesium 1.8 mg/dL (1.6-2.6); Potassium 3.6 mmol/L (3.5-5.1)
[2018-04-19] MEDS: traMADol HCL 50 MG TAB PO PRN ×2 (06:52→21:42)
[2018-04-19] MEDS: ONDANSETRON HCL 4 MG/2 ML VIAL IV PRN (06:52)
--- NOTE | 2018-04-19 07:15 | NUR ---
Endorsed care to Geraldine MONTES
--- NOTE | 2018-04-19 07:50 | NUR ---
Opening Shift Note Assumed care of patient, awake, alert, and oriented x4. Patient has 3/10 complaints of pain in lower extremities. Patient is on room air with no S/S of distress/SOB. Patient has IV in left hand 22g saline locked and flushing well, patient tolerating well. Patient has IV in right forearm 22g running Dobutamine at 15 mL/hr, patient tolerating well. Patient has SCDs. Patient has dozier patent and draining clear yellow urine. Instructed on POC and to call for assist PRN, will continue to monitor for changes Q1hr and PRN. Bed in lowest locked position, call light within reach. Bed alarm on.
[2018-04-19 08:00] VITALS: BP 99/64
[2018-04-19] MEDS: PANTOPRAZOLE 40 MG TAB PO SCH (09:36)
[2018-04-19] MEDS: ASPirin-EC 81 mg tab PO SCH (09:36)
[2018-04-19] MEDS: CLOPIDOGREL BISULFATE 75 MG TAB PO SCH (09:36)
[2018-04-19] MEDS: FLUCONAZOLE 200MG/100ML 100 ML IV SCH (09:36)
[2018-04-19] MEDS: SPIRONOLACTONE 25 MG TAB PO SCH (09:36)
[2018-04-19] MEDS: ERTAPENEM SOD INJ 1 GM in SODIUM CHL 0.9% 50 ML IV SCH (09:36)
[2018-04-19] MEDS: CARVEDILOL 3.125 MG TAB PO SCH (09:37)
[2018-04-19 13:00] VITALS: BP 83/53
[2018-04-19 15:08] LABS: INR 1.94 (0.9-1.15)
[2018-04-19] MEDS ORDERED: MAGNESIUM SULFATE 1GM/100ML 100 ML IV ONE (15:15)
--- NOTE | 2018-04-19 17:09 | NUR ---
BLOOD PRESSURE PATIENT BLOOD PRESSURE 77/55 HR 79, RECHECK 72/50. PAGED COMMUNITY ORGANIZATION AIDE HOSPITALIST. WAITING FOR CALL BACK.
[2018-04-19 17:14] VITALS: BP 77/55
[2018-04-19] MEDS ORDERED: DOBUTamine 1000MCG/ML 250 ML IV SCH (17:30)
--- NOTE | 2018-04-19 17:33 | NUR ---
HOSPITALIST RECEIVED CALL FROM CRISTOPHER MARTIN REGARDING PATIENT BLOOD PRESSURE 77/55 HR 79 RECHECK 72/50. PER HOSPITALITY SPECIALIST, COREG TO BE STOPPED AND DOBUTAMINE CHANGED TO 2.5MCG. ORDERS READ BACK AND VERIFIED.
--- NOTE | 2018-04-19 17:34 | NUR ---
IV insertion IV access obtained, via clean sterile technique by inserting 22 gauge catheter at left forearm after 1 attempt. IV secured properly. No trauma to site. Patient tolerated well.
--- NOTE | 2018-04-19 17:35 | NUR ---
IV removal IV DC'd from right wrist with clean sterile technique, catheter fully intact. Pressure dressing applied to site. Patient tolerated well.
--- NOTE | 2018-04-19 18:30 | NUR ---
DOBUTAMINE DRIP DOBUTAMINE DRIP PLACED AT 13.74ML/HR PER MD ORDER.
[2018-04-19] MEDS: DOBUTamine 1000MCG/ML 250 ML IV SCH (18:46)
--- NOTE | 2018-04-19 18:46 | NUR ---
END OF SHIFT PATIENT RESTING IN BED. NO S/S OF DISTRESS. INSTRUCTED PATIENT TO CALL PRN. BED IN LOWEST LOCKED POSITION, CALL LIGHT WITHIN REACH. ENDORSED CARE TO JYOTI BRANCH.
[2018-04-19 20:00] VITALS: BP 92/67
--- NOTE | 2018-04-19 20:25 | NUR ---
Opening Shift Note Assumed care of patient, awake and alert x4. No S/S of distress/SOB or pain. Instructed on POC and to call for assistance PRN, will continue to monitor for changes Q1hr and PRN. Bowens draining clear yellow urine.
[2018-04-19] MEDS: ATORVASTATIN 20 MG TAB PO SCH (21:42)
--- NOTE | 2018-04-19 21:42 | NUR ---
Pain Management Pt medicated for c/o of pain generalized. Pt repositioned for comfort with aid of pillows, patient able to turn with minimum assistance, heat packs given for comfort. Will continue to monitor.
[2018-04-19 22:00] VITALS: BP_SYST 118; BP_SYST 92; BP_DIAS 67; BP_DIAS 69
[2018-04-20] MEDS: AMPICILLIN INJ 1 GM in SODIUM CHL 0.9% 50 ML IV SCH ×4 (03:03→21:31)
[2018-04-20] MEDS: ONDANSETRON HCL 4 MG/2 ML VIAL IV PRN (03:31)
[2018-04-20 05:00] VITALS: BP 80/55
[2018-04-20] MEDS: HEPARIN SODIUM (PORCINE) 5000 UNITS/ML 1ML VIAL SC SCH ×3 (05:55→21:32)
[2018-04-20] MEDS: BUMETANIDE (0.25MG/ML) 4 ML VIAL IV SCH ×3 (05:56→17:40)
[2018-04-20 06:54] LABS: Hematocrit 32.5 % (36.0-46.0); Hemoglobin 9.9 g/dL (12.2-16.2)
[2018-04-20] MEDS: INSULIN LANTUS (GLARGINE) 1 /0.01ml (100units/ml) SC SCH (07:00)
[2018-04-20] MEDS: InsuLIN REG 1unit/0.01ml Soln (100units/ml) SC SCH ×4 (07:00→21:33)
[2018-04-20] MEDS: ACCU-CHEK COMFORT CURVE STRIP VI SCH ×4 (07:08→21:32)
[2018-04-20 07:09] LABS: Potassium 3.8 mmol/L (3.5-5.1)
[2018-04-20 07:20] LABS: Calcium 8.7 mg/dL (8.5-10.1); Magnesium 2.2 mg/dL (1.6-2.6)
--- NOTE | 2018-04-20 07:20 | NUR ---
OPENING NOTE ASSUMED CARE OF PT. PT IS LAYING ON BED, AWAKE. HOB LOW-FOWLERS. PT IS A&O X4. ON 2 LPM/NC, O2 SATURATION 100%. NO SIGNS OF SOB/DISTRESS. ON TELE #HC3, HR 92. SAFETY PRECAUTIONS IN PLACE INCLUDING, BED SET TO LOWEST POSITION/LOCKED. BEDSIDE RAILS UP X2. BED ALARM ON. CALL LIGHT WITHIN REACH. INSTRUCTED PT TO CALL FOR ASSISTANCE. DISCUSSED POC WITH PT. PT VERBALIZED UNDERSTANDING. WILL CONTINUE TO MONITOR Q 1HR AND PRN.
[2018-04-20 08:47] VITALS: BP 90/64
[2018-04-20] MEDS: CLOPIDOGREL BISULFATE 75 MG TAB PO SCH (09:17)
[2018-04-20] MEDS: SPIRONOLACTONE 25 MG TAB PO SCH (09:17)
[2018-04-20] MEDS: PANTOPRAZOLE 40 MG TAB PO SCH (09:17)
[2018-04-20] MEDS: ASPirin-EC 81 mg tab PO SCH (09:17)
[2018-04-20] MEDS: ERTAPENEM SOD INJ 1 GM in SODIUM CHL 0.9% 50 ML IV SCH (09:18)
[2018-04-20] MEDS: FLUCONAZOLE 200MG/100ML 100 ML IV SCH (09:18)
[2018-04-20] MEDS: DOBUTamine 1000MCG/ML 250 ML IV SCH (12:28)
[2018-04-20 13:00] VITALS: BP 94/69
[2018-04-20 17:16] VITALS: BP 98/58
--- NOTE | 2018-04-20 17:40 | NUR ---
PATIENT REFUSED BUMEX. EDUCATED THE PATIENT ON RISK AND BENEFITS. PATIENT VERBALIZED UNDERSTANDING. PATIENT STILL REFUSED.
--- NOTE | 2018-04-20 19:19 | NUR ---
ENDORSED CARE TO JYOTI CARR.
[2018-04-20] MEDS: ATORVASTATIN 20 MG TAB PO SCH (21:32)
[2018-04-20 22:00] VITALS: BP 91/64
[2018-04-21] MEDS: AMPICILLIN INJ 1 GM in SODIUM CHL 0.9% 50 ML IV SCH ×4 (03:01→21:05)
[2018-04-21 05:01] VITALS: BP 95/64
[2018-04-21] MEDS: HEPARIN SODIUM (PORCINE) 5000 UNITS/ML 1ML VIAL SC SCH ×3 (05:34→22:00)
[2018-04-21] MEDS: InsuLIN REG 1unit/0.01ml Soln (100units/ml) SC SCH ×4 (05:36→22:00)
[2018-04-21] MEDS: ACCU-CHEK COMFORT CURVE STRIP VI SCH ×4 (05:37→22:00)
[2018-04-21] MEDS: INSULIN LANTUS (GLARGINE) 1 /0.01ml (100units/ml) SC SCH (05:37)
[2018-04-21] MEDS: BUMETANIDE (0.25MG/ML) 4 ML VIAL IV SCH ×2 (05:55→17:53)
--- NOTE | 2018-04-21 07:00 | NUR ---
OPENING SHIFT NOTE ASSUMED CARE OF THE PATIENT FROM THE TISSUE TECHNICIAN RN. THE PATIENT IS SLEEPING, NO SIGNS OR SYMPTOMS OF DISTRESS. THE PATIENT'S CALL LIGHT IS WITHIN REACH AND BED IS IN THE LOWEST, LOCKED POSITION. WILL ROUND HOURLY AND CONTINUE TO MONITOR.
[2018-04-21 08:20] VITALS: BP 101/53
[2018-04-21] MEDS: ONDANSETRON HCL 4 MG/2 ML VIAL IV PRN (09:30)
[2018-04-21] MEDS: DOBUTamine 1000MCG/ML 250 ML IV SCH (09:42)
[2018-04-21] MEDS: SPIRONOLACTONE 25 MG TAB PO SCH (09:43)
[2018-04-21] MEDS: PANTOPRAZOLE 40 MG TAB PO SCH (09:43)
[2018-04-21] MEDS: CLOPIDOGREL BISULFATE 75 MG TAB PO SCH (09:43)
[2018-04-21] MEDS: ASPirin-EC 81 mg tab PO SCH (09:43)
[2018-04-21] MEDS: ERTAPENEM SOD INJ 1 GM in SODIUM CHL 0.9% 50 ML IV SCH (12:21)
[2018-04-21 13:00] VITALS: BP 112/64
[2018-04-21 17:00] VITALS: BP 95/65
[2018-04-21] MEDS: DEMECLOCYCLINE HCL 150 MG TAB PO SCH ×2 (18:00→23:33)
--- NOTE | 2018-04-21 19:10 | NUR ---
assumed care, pt. awake, marshallese speak only, relatives at bedside, no c/o pain, no sob.
[2018-04-21] MEDS: ATORVASTATIN 20 MG TAB PO SCH (21:59)
[2018-04-21 22:00] VITALS: BP 94/61
[2018-04-22] MEDS: DOBUTamine 1000MCG/ML 250 ML IV SCH ×2 (01:21→04:16)
[2018-04-22] MEDS: AMPICILLIN INJ 1 GM in SODIUM CHL 0.9% 50 ML IV SCH ×4 (02:34→20:39)
[2018-04-22 05:00] VITALS: BP 99/64
[2018-04-22] MEDS: DEMECLOCYCLINE HCL 150 MG TAB PO SCH ×4 (05:59→23:35)
[2018-04-22] MEDS: HEPARIN SODIUM (PORCINE) 5000 UNITS/ML 1ML VIAL SC SCH ×3 (06:00→21:38)
[2018-04-22] MEDS: BUMETANIDE (0.25MG/ML) 4 ML VIAL IV SCH (06:14)
[2018-04-22] MEDS: InsuLIN REG 1unit/0.01ml Soln (100units/ml) SC SCH ×4 (06:15→21:39)
[2018-04-22] MEDS: ACCU-CHEK COMFORT CURVE STRIP VI SCH ×4 (06:15→21:39)
[2018-04-22] MEDS: INSULIN LANTUS (GLARGINE) 1 /0.01ml (100units/ml) SC SCH (06:15)
[2018-04-22 06:58] LABS: Basophils # (auto) 0 uL; Eosinophils # (auto) 0.1 uL; Hemoglobin 10.1 g/dL (12.2-16.2); Lymphocytes # (auto) 0.9 uL; Mean Corpuscular Hemoglobin 25.7 pg (28.0-32.0); Red Blood Cells 3.94 10^6/uL (4.0-5.20)
[2018-04-22 07:07] LABS: Basophils % (auto) 0.7 % (0.0-2.0); Eosinophils % (auto) 1.8 % (0.0-7.0); Hematocrit 32.7 % (36.0-46.0); Monocytes # (auto) 0.6 uL; Monocytes % (auto) 10.3 % (0.0-12.0); Neutrophils # (auto) 3.9 uL; Neutrophils % (auto) 71.2 % (37.0-80.0); Nucleated Red Blood Cells % 0.4 %; Platelet Count (auto) 130 10^3/uL (140-450); White Blood Cell 5.5 10^3/uL (4.4-10.8)
[2018-04-22 07:08] LABS: Albumin 2.7 g/dL (3.4-5.0); Calcium 8.4 mg/dL (8.5-10.1); Magnesium 2.2 mg/dL (1.6-2.6); Potassium 4.2 mmol/L (3.5-5.1)
[2018-04-22 07:13] LABS: BUN/Creatinine Ratio 22.8; Bilirubin, Total 1.5 mg/dL (0.2-1.0); Total Protein 6.3 g/dL (6.4-8.2)
[2018-04-22 07:15] LABS: Red Cell Distribution Width 23.8 % (11.8-14.3)
[2018-04-22 08:53] VITALS: BP 88/54
--- NOTE | 2018-04-22 09:30 | NUR ---
Patient is refusing to put the SCD's on.
--- NOTE | 2018-04-22 09:30 | NUR ---
Patient sitting in chair, was assisted by 3 persons.
[2018-04-22] MEDS: CLOPIDOGREL BISULFATE 75 MG TAB PO SCH (10:00)
[2018-04-22] MEDS: PANTOPRAZOLE 40 MG TAB PO SCH (10:00)
[2018-04-22] MEDS: ASPirin-EC 81 mg tab PO SCH (10:00)
[2018-04-22] MEDS: SPIRONOLACTONE 25 MG TAB PO SCH (10:00)
--- NOTE | 2018-04-22 10:00 | NUR ---
Patient was put back to bed by physical therapist with maximum assist.
[2018-04-22] MEDS: ERTAPENEM SOD INJ 1 GM in SODIUM CHL 0.9% 50 ML IV SCH (10:01)
--- NOTE | 2018-04-22 10:50 | NUR ---
Son at bedside.
[2018-04-22 12:00] VITALS: BP 89/66
[2018-04-22 17:00] VITALS: BP 86/62
--- NOTE | 2018-04-22 19:00 | NUR ---
Closing note Patient resting in bed, no signs of distress noted.
--- NOTE | 2018-04-22 19:15 | NUR ---
ASSUMED CARE, PT. AWAKE, NO C/O PAIN, REPOSITIONED PT. NO SOB.
[2018-04-22] MEDS: ATORVASTATIN 20 MG TAB PO SCH (21:38)
[2018-04-22 22:00] VITALS: BP 93/62
[2018-04-23] MEDS: AMPICILLIN INJ 1 GM in SODIUM CHL 0.9% 50 ML IV SCH ×4 (02:33→20:31)
[2018-04-23] MEDS: DOBUTamine 1000MCG/ML 250 ML IV SCH (03:08)
[2018-04-23 05:00] VITALS: BP 98/66
[2018-04-23] MEDS: HEPARIN SODIUM (PORCINE) 5000 UNITS/ML 1ML VIAL SC SCH ×3 (05:59→21:30)
[2018-04-23] MEDS: DEMECLOCYCLINE HCL 150 MG TAB PO SCH ×3 (06:00→18:10)
[2018-04-23] MEDS: INSULIN LANTUS (GLARGINE) 1 /0.01ml (100units/ml) SC SCH (06:07)
[2018-04-23] MEDS: InsuLIN REG 1unit/0.01ml Soln (100units/ml) SC SCH ×4 (06:08→21:32)
[2018-04-23] MEDS: ACCU-CHEK COMFORT CURVE STRIP VI SCH ×4 (06:08→21:32)
[2018-04-23 06:39] LABS: Albumin 2.7 g/dL (3.4-5.0); Calcium 8.7 mg/dL (8.5-10.1); Potassium 4.1 mmol/L (3.5-5.1)
[2018-04-23 06:43] LABS: Bilirubin, Total 1.6 mg/dL (0.2-1.0); Phosphorus 3.3 mg/dL (2.5-4.90); Total Protein 6.3 g/dL (6.4-8.2); Uric Acid 9.8 mg/dL (2.6-6.0)
[2018-04-23 09:01] VITALS: BP 103/63
[2018-04-23] MEDS: SPIRONOLACTONE 25 MG TAB PO SCH (09:03)
[2018-04-23] MEDS: PANTOPRAZOLE 40 MG TAB PO SCH (09:03)
[2018-04-23] MEDS: CLOPIDOGREL BISULFATE 75 MG TAB PO SCH (09:04)
[2018-04-23] MEDS: ASPirin-EC 81 mg tab PO SCH (09:04)
[2018-04-23] MEDS: BUMETANIDE 1 MG TAB PO SCH (09:04)
[2018-04-23] MEDS: ERTAPENEM SOD INJ 1 GM in SODIUM CHL 0.9% 50 ML IV SCH (11:46)
--- NOTE | 2018-04-23 12:30 | NUR ---
Patient had a small bowel movement, was washed and changed. Positioned comfortably. Elevated lower extremities as lower extremities is swollen. Patient refused SCD's. Full bed linen changed as well.
[2018-04-23 13:00] VITALS: BP 98/54
--- NOTE | 2018-04-23 15:16 | NUR ---
Nutrition Follow-up Notes Wt.: 91.6 kg as of yesterday. Pt's in isolation room, on oxygen via nasal cannula, asleep, no immediate family member at bedside during rounds this morning. Pt's no signs of distress noted earlier, currently on Consistent Standard Carb: 60 gms/meal, Cardiac: Low Chol, Low Fat diet with inadequate PO intake aeb <60% ave. consumed meals (x6) in last 2.5 days. Est. Needs: 1750 kcal to 2150 kcal (20-25 kcal/kgBW), 86 gms to 103 gms pro (1.0-1.2 gms/kgBW). Will continue to monitor pertinent labs and reassess nutrient need prn Labs: Gluc 130 H, Na 131 L, Cl 95 L, BUN 42 H, Cr 1.82 H, Ca 9.8 H, Tot sarah 1.6 H, ALT 11 L, ALP 127 H, Tpro 6.3 L, Alb 2.7 L; HbA1c 9.1 H Skin: Osbaldo scale 17, mod risk, pt's posterior sacrum slow to candie redness per corncob pipe manufacturing supervisor. GI: Pt had 1 BM this morning per corncob pipe manufacturing supervisor. PES: Altered nutrition related lab values r/t current/chronic medical condition aeb hyperglycemia, hyponatremia, hypokalemia,, hypochloremia, elev. renal labs, HbA1c, ALP, hyperbilirubinemia, hypocalcemia and mod hypoalbuminemia Obesity r/t food intake more than body requirement aeb 152% IBW, BMI 31.7 kg/m2 and increased body adiposity Will continue to monitor PO intake, skin status, pertinent labs and weight trend. F/u in 3 to 5 days. Rec.: 1.) If Albumin level continues trending down with improved renal labs, consider Prostat 1 pkt BID. 2.) Continue close supervision and feeding assistance with meals. 3.) If pt's PO intake inadequate (<75%), consider Glucerna Shakes 1 carton BID 4.) Refer to CDE/RD for further nutrition educ. and weight monitoring upon discharge. 5.) Continue current plan of care..
[2018-04-23 17:10] VITALS: BP 90/61
[2018-04-23] MEDS: Glucerna Carbsteady SHAKE Vanilla 8oz PO SCH (18:00)
--- NOTE | 2018-04-23 18:00 | NUR ---
SPOKE TO FAMILY, STATES PATIENT HAS NO PRIMARY DOCTOR.
--- NOTE | 2018-04-23 18:54 | NUR ---
CLOSING NOTE PATIENT RESTING IN BED, NO SIGNS OF DISTRESS NOTED. FAMILY AT BEDSIDE.
--- NOTE | 2018-04-23 19:10 | NUR ---
assumed care, pt. awake, no c/o pain, no sob.
[2018-04-23] MEDS: ATORVASTATIN 20 MG TAB PO SCH (21:30)
[2018-04-23 22:00] VITALS: BP 90/64
[2018-04-24] MEDS: DOBUTamine 1000MCG/ML 250 ML IV SCH ×2 (01:29→15:00)
[2018-04-24] MEDS: AMPICILLIN INJ 1 GM in SODIUM CHL 0.9% 50 ML IV SCH ×4 (03:04→22:24)
[2018-04-24 05:00] VITALS: BP 103/66
[2018-04-24] MEDS: DEMECLOCYCLINE HCL 150 MG TAB PO SCH ×4 (05:54→18:00)
[2018-04-24] MEDS: HEPARIN SODIUM (PORCINE) 5000 UNITS/ML 1ML VIAL SC SCH ×4 (05:54→22:25)
[2018-04-24] MEDS: InsuLIN REG 1unit/0.01ml Soln (100units/ml) SC SCH ×4 (06:07→22:00)
[2018-04-24] MEDS: INSULIN LANTUS (GLARGINE) 1 /0.01ml (100units/ml) SC SCH (06:07)
[2018-04-24] MEDS: ACCU-CHEK COMFORT CURVE STRIP VI SCH ×4 (06:08→22:48)
[2018-04-24 06:40] LABS: Albumin 2.6 g/dL (3.4-5.0); BUN/Creatinine Ratio 21.5; Calcium 8.4 mg/dL (8.5-10.1); Potassium 4.1 mmol/L (3.5-5.1)
[2018-04-24 06:43] LABS: Bilirubin, Total 1.4 mg/dL (0.2-1.0); Total Protein 6.1 g/dL (6.4-8.2)
--- NOTE | 2018-04-24 07:00 | NUR ---
Opening Shift Note Assumed care of patient, awake, alert, and oriented x3. No S/S of distress/SOB or pain. IV in left forearm 22 gauge asymptomatic, intact, patent, and infusing dobutamine at 13.74 mL/hour. Bed locked and in lowest position and call light is within reach. Instructed on POC and to call for assist PRN, and patient verbalized understanding to the best of her ability. Will continue to monitor for changes Q1hr and PRN.
[2018-04-24] MEDS: Glucerna Carbsteady SHAKE Vanilla 8oz PO SCH ×2 (08:00→18:00)
[2018-04-24 09:00] VITALS: BP 90/63
[2018-04-24] MEDS: PANTOPRAZOLE 40 MG TAB PO SCH (09:37)
[2018-04-24] MEDS: ASPirin-EC 81 mg tab PO SCH (09:37)
[2018-04-24] MEDS: CLOPIDOGREL BISULFATE 75 MG TAB PO SCH (09:37)
[2018-04-24] MEDS: SPIRONOLACTONE 25 MG TAB PO SCH (09:38)
[2018-04-24] MEDS: BUMETANIDE 1 MG TAB PO SCH (10:00)
--- NOTE | 2018-04-24 12:00 | NUR ---
PATIENT REFUSED ACCUCHECK. PATIENT REFUSED BLOOD SUGAR CHECK AT 1130. NO DISTRESS NOTED AT THIS TIME. PATIENT RESTING COMFORTABLY IN BED.
[2018-04-24 13:00] VITALS: BP 80/67
[2018-04-24] MEDS: ERTAPENEM SOD INJ 1 GM in SODIUM CHL 0.9% 50 ML IV SCH (14:00)
--- NOTE | 2018-04-24 14:00 | NUR ---
PATIENT REFUSED HEPARIN AT 1400.
[2018-04-24] MEDS ORDERED: DOBUTamine 1000MCG/ML 250 ML IV SCH (14:45)
[2018-04-24 17:00] VITALS: BP 77/63
--- NOTE | 2018-04-24 20:14 | NUR ---
received report from gerald;madison oviedo poc reviewed
[2018-04-24 22:00] VITALS: BP 92/66
[2018-04-24] MEDS: ATORVASTATIN 20 MG TAB PO SCH (22:25)
[2018-04-24] MEDS: traMADol HCL 50 MG TAB PO PRN (22:47)
--- NOTE | 2018-04-25 01:30 | NUR ---
pts iv d/c'd, leaking at site, pt is a hard stick
--- NOTE | 2018-04-25 02:04 | NUR ---
new iv 22g left hand dobutamine infusing as ordered
--- NOTE | 2018-04-25 03:03 | NUR ---
turned and repositioned with hob up, call light within reach bed alarm intact,
[2018-04-25] MEDS: DEMECLOCYCLINE HCL 150 MG TAB PO SCH ×4 (04:12→17:29)
[2018-04-25] MEDS: AMPICILLIN INJ 1 GM in SODIUM CHL 0.9% 50 ML IV SCH ×4 (04:12→21:11)
[2018-04-25 05:39] VITALS: BP 81/55
[2018-04-25] MEDS: LEVOTHYROXINE SODIUM 25 MCG TAB PO SCH (05:58)
[2018-04-25] MEDS: traMADol HCL 50 MG TAB PO PRN ×2 (05:58→13:04)
[2018-04-25] MEDS: INSULIN LANTUS (GLARGINE) 1 /0.01ml (100units/ml) SC SCH (05:58)
[2018-04-25] MEDS: ACCU-CHEK COMFORT CURVE STRIP VI SCH ×4 (05:59→22:54)
[2018-04-25] MEDS: InsuLIN REG 1unit/0.01ml Soln (100units/ml) SC SCH ×4 (05:59→22:00)
[2018-04-25] MEDS: HEPARIN SODIUM (PORCINE) 5000 UNITS/ML 1ML VIAL SC SCH ×3 (06:06→22:54)
[2018-04-25 06:46] LABS: BUN/Creatinine Ratio 21.3; Calcium 8.4 mg/dL (8.5-10.1); Potassium 4.4 mmol/L (3.5-5.1)
--- NOTE | 2018-04-25 07:00 | NUR ---
report given to am nurse poc reciewed
[2018-04-25 08:00] VITALS: BP 94/63
[2018-04-25 08:08] VITALS: BP 94/63
[2018-04-25] MEDS: BUMETANIDE 1 MG TAB PO SCH (10:00)
[2018-04-25] MEDS: SPIRONOLACTONE 25 MG TAB PO SCH (10:00)
[2018-04-25] MEDS: Glucerna Carbsteady SHAKE Vanilla 8oz PO SCH ×2 (11:53→18:23)
[2018-04-25] MEDS: PANTOPRAZOLE 40 MG TAB PO SCH (11:54)
[2018-04-25] MEDS: CLOPIDOGREL BISULFATE 75 MG TAB PO SCH (11:54)
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
[2018-04-25] MEDS: ERTAPENEM SOD INJ 1 GM in SODIUM CHL 0.9% 50 ML IV SCH (12:52)
[2018-04-25] MEDS: ASPirin-EC 81 mg tab PO SCH (12:52)
[2018-04-25 13:00] VITALS: BP 93/59
[2018-04-25] MEDS: MIDODRINE HCL 10 MG TAB PO SCH ×2 (13:04→18:23)
--- NOTE | 2018-04-25 14:30 | NUR ---
Cleansed paulina area/ buttocks with warm water and patted with dry washcloth. Applied zguard cream and Optifoam. Patient tolerated well.
--- NOTE | 2018-04-25 14:30 | NUR ---
Complete Bed linen change with [facility]'s help. Patient tolerated well.
[2018-04-25 17:00] VITALS: BP 94/60
--- NOTE | 2018-04-25 17:52 | NUR ---
MIDLINE placement Patient/Patient significant other educated on need for PICC line placement. All risks and benefits explained and all questions and concerns addressed prior to procedure. Noted past medical history and allergies with no contraindications. INR and Plt counts within acceptable range. 4 fr MIDLINE inserted via right basilic vein using [employer] US and Tip Location System. Sterile technique with maximum barrier precautions utilized. Blood return obtained from the single lumen and it flushed easily with NS using proper technique. MIDLINE secured with Stat-lock; biodisc and occlusive dressing applied. Less than 5ml EBL noted during procedure. MIDLINE 20cm internally w/ 0cm externally. *Baseline Arm Circumference 33cm at 1cm above insertion site. MIDLINE lot # [id number]. Note:
--- NOTE | 2018-04-25 17:54 | NUR ---
OK to use MIDLINE Twila Perez notified now OK to use MIDLINE.
[2018-04-25] MEDS: DOBUTamine 1000MCG/ML 250 ML IV SCH (18:22)
--- NOTE | 2018-04-25 18:41 | NUR ---
End of shift note: Patient comfortably sleeping in bed, no c/o pain. No s/s of distress/sob noted or stated. Bed at lowest position and call light within reach. Will endorse care to NOC RN.
[2018-04-25 22:00] VITALS: BP 96/65
[2018-04-25] MEDS: ATORVASTATIN 20 MG TAB PO SCH (22:00)
[2018-04-25] MEDS ORDERED: HEPARIN SODIUM (PORCINE) 5000 UNITS/ML 1ML VIAL ONE (22:38)
[2018-04-26] VITALS (7 sets, daily range): BP systolic 82–102; BP diastolic 50–64
[2018-04-26] MEDS: AMPICILLIN INJ 1 GM in SODIUM CHL 0.9% 50 ML IV SCH ×4 (03:32→21:09)
[2018-04-26] MEDS: DEMECLOCYCLINE HCL 150 MG TAB PO SCH ×4 (06:00→18:00)
[2018-04-26] MEDS: MIDODRINE HCL 10 MG TAB PO SCH ×3 (06:00→18:00)
[2018-04-26] MEDS: HEPARIN SODIUM (PORCINE) 5000 UNITS/ML 1ML VIAL SC SCH ×3 (06:44→22:00)
[2018-04-26] MEDS: ACCU-CHEK COMFORT CURVE STRIP VI SCH ×4 (06:45→22:32)
[2018-04-26] MEDS: InsuLIN REG 1unit/0.01ml Soln (100units/ml) SC SCH ×4 (06:46→22:00)
[2018-04-26] MEDS: LEVOTHYROXINE SODIUM 25 MCG TAB PO SCH (06:46)
[2018-04-26] MEDS: INSULIN LANTUS (GLARGINE) 1 /0.01ml (100units/ml) SC SCH (06:46)
[2018-04-26 07:04] LABS: BUN/Creatinine Ratio 21.7; Calcium 8.4 mg/dL (8.5-10.1); Potassium 4.8 mmol/L (3.5-5.1)
--- NOTE | 2018-04-26 07:32 | NUR ---
Opening Shift Note Assumed care of patient comfortably sleeping, no S/S of distress/SOB or pain. Breath sounds even and unlabored. Will continue to monitor for changes Q1hr and PRN.
[2018-04-26] MEDS: Glucerna Carbsteady SHAKE Vanilla 8oz PO SCH ×2 (08:00→18:00)
[2018-04-26] MEDS: BUMETANIDE 1 MG TAB PO SCH (10:00)
[2018-04-26] MEDS: SPIRONOLACTONE 25 MG TAB PO SCH (10:00)
--- NOTE | 2018-04-26 11:16 | NUR ---
Nutrition Consult and Follow-up Notes Wt.: 99.1 kg based on bed scale as of yesterday. Noted 7.5 kg weight gain in last 4 days likely d/t ? fluid retention aeb Ascites, positive I & Os for past few days. Pt's in isolation room, on oxygen via nasal cannula, asleep, no immediate family member at bedside when rounded this morning. Pt's no signs of distress noted earlier, currently on Pureed Consistent Standard Carb: 60 gms/meal, Cardiac: Low Chol, Low Fat diet with Glucerna Shakes 1 carton BID, has inadequate PO intake aeb <50% ave. consumed meals (x6) in last 3 days.d/t pt refused, per nursing. Est. Needs: 1750 kcal to 2150 kcal (20-25 kcal/kgBW), 69 gms to 86 gms pro (0.8-1.0 gm /kgBW). Will continue to monitor pertinent labs and reassess nutrient need prn Labs: Na 134 L, Cl 97 L, BUN 50 H, Cr 2.30 H, Ca 8.4 H, Tpro 6.1 L, Alb 2.6 L; HbA1c 9.1 H Skin: Osbaldo scale 15, mod risk, pt's posterior sacrum slow to candie redness per parts facilitator. GI: Pt had 2x BM 04/23/18 per parts facilitator. PES: Altered nutrition related lab values r/t current/chronic medical condition aeb hyperglycemia, hyponatremia, hypokalemia,, hypochloremia, elev. renal labs, HbA1c, ALP, hyperbilirubinemia, hypocalcemia and mod hypoalbuminemia Obesity r/t food intake more than body requirement aeb 152% IBW, BMI 31.7 kg/m2 and increased body adiposity Will continue to monitor PO intake, skin status, pertinent labs and weight trend. F/u in 3 to 5 days. Rec.: 1.) Continue close supervision and feeding assistance with meals. 2.) If pt's PO intake inadequate (<75%), consider appetite stimulant prn to improve appetite. 3.) If renal labs continue trending up, consider Renal Specific: 70 gms pro in addition to current therapeutic diet. 4.) If Albumin level continues trending down with improved renal labs, consider Prostat 1 pkt BID. 5.) Refer to CDE/RD for further nutrition educ. and weight monitoring upon discharge. 6.) Continue current plan of care.. Thank you for this consult.
[2018-04-26] MEDS: ASPirin-EC 81 mg tab PO SCH (12:00)
[2018-04-26] MEDS: ERTAPENEM SOD INJ 1 GM in SODIUM CHL 0.9% 50 ML IV SCH (12:00)
[2018-04-26] MEDS: CLOPIDOGREL BISULFATE 75 MG TAB PO SCH (12:01)
[2018-04-26] MEDS: PANTOPRAZOLE 40 MG TAB PO SCH (12:01)
--- NOTE | 2018-04-26 12:16 | NUR ---
Pt refusing to get out of bed. Pt states that she is extremely fatigued today. Advised patient will chk back later. Addendum: 04/26/18 at 1217 by Lily Washburn PT Amended: Links added.
[2018-04-26] MEDS: DOBUTamine 1000MCG/ML 250 ML IV SCH (16:37)
--- NOTE | 2018-04-26 19:15 | NUR ---
OPEN SHIFT NOTE PATIENT IS ALERT AND ORIENTED X 4, ON 1L NASAL CANNULA. PATIENT HAS SCD'S ON BILATERALLY DUE TO BED REST. MIDLINE IS INTACT AND PATENT AND LEFT HAND 22 GAUGE IS INTACT AND PATENT. POC DISCUSSED AND QUESTIONS ANSWERED, BED IS LOCKED IN LOWEST POSITION WITH SIDE RAILS X3 PER PATIENTS REQUEST. CALL LIGHT IS WITHIN REACH. WILL CONTINUE TO ROUND Q1 HR AND PRN.
[2018-04-26] MEDS: ATORVASTATIN 20 MG TAB PO SCH (22:00)
[2018-04-27] MEDS: AMPICILLIN INJ 1 GM in SODIUM CHL 0.9% 50 ML IV SCH ×4 (03:09→21:00)
[2018-04-27 05:00] VITALS: BP 96/66
[2018-04-27] MEDS: MIDODRINE HCL 10 MG TAB PO SCH ×3 (05:56→18:05)
[2018-04-27] MEDS: DEMECLOCYCLINE HCL 150 MG TAB PO SCH ×5 (05:56→23:59)
[2018-04-27] MEDS: HEPARIN SODIUM (PORCINE) 5000 UNITS/ML 1ML VIAL SC SCH ×3 (05:57→21:58)
[2018-04-27 06:09] LABS: BUN/Creatinine Ratio 23.4; Calcium 8.5 mg/dL (8.5-10.1); Potassium 5.2 mmol/L (3.5-5.1)
[2018-04-27] MEDS: ACCU-CHEK COMFORT CURVE STRIP VI SCH ×4 (06:19→21:58)
[2018-04-27] MEDS: InsuLIN REG 1unit/0.01ml Soln (100units/ml) SC SCH ×4 (06:19→21:58)
[2018-04-27] MEDS: INSULIN LANTUS (GLARGINE) 1 /0.01ml (100units/ml) SC SCH (06:20)
[2018-04-27] MEDS: LEVOTHYROXINE SODIUM 25 MCG TAB PO SCH (06:57)
--- NOTE | 2018-04-27 07:50 | NUR ---
Opening Shift Note Assumed care of patient, awake and alert laying in bed. No S/S of distress/SOB or pain. Instructed on POC and to call for assist PRN, will continue to monitor for changes Q1hr and PRN.
[2018-04-27] MEDS: Glucerna Carbsteady SHAKE Vanilla 8oz PO SCH ×2 (09:39→18:06)
[2018-04-27] MEDS: CLOPIDOGREL BISULFATE 75 MG TAB PO SCH (09:40)
[2018-04-27] MEDS: PANTOPRAZOLE 40 MG TAB PO SCH (09:40)
[2018-04-27] MEDS: ASPirin-EC 81 mg tab PO SCH (09:40)
[2018-04-27] MEDS: ERTAPENEM SOD INJ 1 GM in SODIUM CHL 0.9% 50 ML IV SCH (09:42)
[2018-04-27] MEDS: BUMETANIDE 1 MG TAB PO SCH (10:00)
[2018-04-27] MEDS: SPIRONOLACTONE 25 MG TAB PO SCH (10:00)
--- NOTE | 2018-04-27 12:00 | NUR ---
DNR status. Patient and MD signed DNR form. Comfort measures only.
--- NOTE | 2018-04-27 14:30 | NUR ---
PT PT worked with patient in bed, she refused to ambulate.
[2018-04-27] MEDS: DOBUTamine 1000MCG/ML 250 ML IV SCH (15:00)
--- NOTE | 2018-04-27 19:10 | NUR ---
Opening Shift Note Report received from Sheila MONTES. Assumed care of patient, awake and alert 3X. No S/S of distress/SOB or pain, experiencing weaning edema from abdomen. Instructed on POC and to call for assist PRN, will continue to monitor for changes Q1hr and PRN.receiving Dobutamine drip.
[2018-04-27 20:10] VITALS: BP 101/65
[2018-04-27] MEDS: traMADol HCL 50 MG TAB PO PRN (21:00)
[2018-04-27 21:30] VITALS: BP 101/65
[2018-04-27] MEDS: ATORVASTATIN 20 MG TAB PO SCH (21:56)
[2018-04-27] MEDS: SODIUM POLYSTYRENE SULF 15GM/60ml SUSP or POWDER PO SCH (21:59)
--- NOTE | 2018-04-27 22:00 | NUR ---
PT REFUSED MEDICATION SUSPENSION POLYSTYRENE DOES NOT LIKE THE TASTE. EDUCATION PROVIDED. STILL REFUSED MEDICATION.
--- NOTE | 2018-04-27 23:59 | NUR ---
PT REFUSED MEDICATION DECLOMYCIN STATED "THAT'S WHAT IS KILLING ME" , EDUCATION PROVIDED. STILL REFUSED MEDICATION.
[2018-04-28] MEDS: traMADol HCL 50 MG TAB PO PRN (03:01)
[2018-04-28] MEDS: AMPICILLIN INJ 1 GM in SODIUM CHL 0.9% 50 ML IV SCH ×4 (03:02→22:09)
[2018-04-28 05:00] VITALS: BP 102/67
[2018-04-28] MEDS: MIDODRINE HCL 10 MG TAB PO SCH ×3 (06:03→18:06)
[2018-04-28] MEDS: DEMECLOCYCLINE HCL 150 MG TAB PO SCH ×4 (06:03→23:42)
[2018-04-28] MEDS: LEVOTHYROXINE SODIUM 25 MCG TAB PO SCH (06:06)
[2018-04-28] MEDS: InsuLIN REG 1unit/0.01ml Soln (100units/ml) SC SCH ×4 (06:06→22:00)
[2018-04-28] MEDS: HEPARIN SODIUM (PORCINE) 5000 UNITS/ML 1ML VIAL SC SCH ×3 (06:06→22:00)
[2018-04-28] MEDS: INSULIN LANTUS (GLARGINE) 1 /0.01ml (100units/ml) SC SCH (06:06)
[2018-04-28] MEDS: ACCU-CHEK COMFORT CURVE STRIP VI SCH ×4 (06:07→22:10)
[2018-04-28 06:43] LABS: BUN/Creatinine Ratio 23.6; Calcium 9.2 mg/dL (8.5-10.1); Potassium 4.7 mmol/L (3.5-5.1)
--- NOTE | 2018-04-28 07:01 | NUR ---
closing Shift Note SBAR REPORT TO BE GIVEN TO JYOTI Sosa. asleep. No S/S of distress/SOB or pain. Previously instructed on POC and to call for assist PRN, safety measures in place .
[2018-04-28] MEDS: Glucerna Carbsteady SHAKE Vanilla 8oz PO SCH ×2 (08:57→18:00)
[2018-04-28 09:00] VITALS: BP 95/57
[2018-04-28] MEDS: ERTAPENEM SOD INJ 1 GM in SODIUM CHL 0.9% 50 ML IV SCH (09:58)
[2018-04-28] MEDS: CLOPIDOGREL BISULFATE 75 MG TAB PO SCH (09:59)
[2018-04-28] MEDS: PANTOPRAZOLE 40 MG TAB PO SCH (10:00)
[2018-04-28] MEDS: ASPirin-EC 81 mg tab PO SCH (10:00)
[2018-04-28] MEDS: BUMETANIDE 1 MG TAB PO SCH (10:00)
[2018-04-28] MEDS: SODIUM POLYSTYRENE SULF 15GM/60ml SUSP or POWDER PO SCH ×2 (10:00→22:00)
[2018-04-28] MEDS: SPIRONOLACTONE 25 MG TAB PO SCH (10:01)
[2018-04-28 13:00] VITALS: BP 87/56
[2018-04-28] MEDS: DOBUTamine 1000MCG/ML 250 ML IV SCH (14:19)
[2018-04-28 17:00] VITALS: BP 82/62
--- NOTE | 2018-04-28 19:09 | NUR ---
Hospice Daughter informed me that her aunts (patient's sisters) who lives in [place] wants to take the patient home tomorrow instead of going to a hospice facility. They want to take care of her at home.
[2018-04-28 22:00] VITALS: BP 122/66
[2018-04-28] MEDS: ATORVASTATIN 20 MG TAB PO SCH (23:41)
[2018-04-29] MEDS: AMPICILLIN INJ 1 GM in SODIUM CHL 0.9% 50 ML IV SCH ×4 (03:25→20:49)
[2018-04-29 05:00] VITALS: BP 84/59
[2018-04-29 05:52] LABS: Basophils # (auto) 0 uL; Eosinophils # (auto) 0.1 uL; Nucleated Red Blood Cells % 0.2 %; Platelet Count (auto) 133 10^3/uL (140-450)
[2018-04-29 05:54] LABS: Basophils % (auto) 0.6 % (0.0-2.0); Eosinophils % (auto) 1.2 % (0.0-7.0); Hemoglobin 10.7 g/dL (12.2-16.2); Lymphocytes # (auto) 1.3 uL; Lymphocytes % (auto) 21.6 % (10.0-50.0); Mean Corpuscular Hemoglobin 25.5 pg (28.0-32.0); Mean Corpuscular Hgb Conc. 29.6 g/dL (32.0-36.0); Monocytes # (auto) 0.6 uL; Neutrophils # (auto) 3.9 uL; Neutrophils % (auto) 65.6 % (37.0-80.0); Red Blood Cells 4.19 10^6/uL (4.0-5.20); White Blood Cell 5.9 10^3/uL (4.4-10.8)
[2018-04-29] MEDS: HEPARIN SODIUM (PORCINE) 5000 UNITS/ML 1ML VIAL SC SCH ×3 (06:00→21:49)
[2018-04-29 06:11] LABS: BUN/Creatinine Ratio 24.3; Calcium 8.5 mg/dL (8.5-10.1); Potassium 5.1 mmol/L (3.5-5.1)
[2018-04-29] MEDS: MIDODRINE HCL 10 MG TAB PO SCH ×3 (06:32→17:07)
[2018-04-29] MEDS: DEMECLOCYCLINE HCL 150 MG TAB PO SCH ×4 (06:32→23:57)
[2018-04-29] MEDS: INSULIN LANTUS (GLARGINE) 1 /0.01ml (100units/ml) SC SCH (06:33)
[2018-04-29] MEDS: ACCU-CHEK COMFORT CURVE STRIP VI SCH ×4 (06:33→21:47)
[2018-04-29] MEDS: LEVOTHYROXINE SODIUM 25 MCG TAB PO SCH (06:33)
[2018-04-29 06:34] LABS: Red Cell Distribution Width 23.9 % (11.8-14.3)
[2018-04-29] MEDS: InsuLIN REG 1unit/0.01ml Soln (100units/ml) SC SCH ×4 (06:34→21:47)
--- NOTE | 2018-04-29 07:30 | NUR ---
OPENING NOTE ASSUMED CARE OF PT. PT IS LAYING ON BED, AWAKE. HOB LOW-FOWLERS. PT IS A&O X4. ON 2 LPM/NC, O2 SATURATION 100%. NO SIGNS OF SOB/DISTRESS. ON TELE #HC3, HR 92. LOPEZ CATH INTACT, PATENT AND DRAINING LIGHT OMER URINE TO GRAVITY. SAFETY PRECAUTIONS IN PLACE INCLUDING, BED SET TO LOWEST POSITION/LOCKED. BEDSIDE RAILS UP X2. BED ALARM ON. CALL LIGHT WITHIN REACH. INSTRUCTED PT TO CALL FOR ASSISTANCE. DISCUSSED POC WITH PT. PT VERBALIZED UNDERSTANDING. WILL CONTINUE TO MONITOR Q 1HR AND PRN.
[2018-04-29] MEDS: Glucerna Carbsteady SHAKE Vanilla 8oz PO SCH ×2 (08:00→17:42)
[2018-04-29 08:10] VITALS: BP 90/50
[2018-04-29] MEDS: SPIRONOLACTONE 25 MG TAB PO SCH (09:48)
[2018-04-29] MEDS: PANTOPRAZOLE 40 MG TAB PO SCH (09:48)
[2018-04-29] MEDS: ASPirin-EC 81 mg tab PO SCH (09:48)
[2018-04-29] MEDS: BUMETANIDE 1 MG TAB PO SCH (09:48)
[2018-04-29] MEDS: CLOPIDOGREL BISULFATE 75 MG TAB PO SCH (09:48)
[2018-04-29] MEDS: SODIUM POLYSTYRENE SULF 15GM/60ml SUSP or POWDER PO SCH ×2 (09:50→21:47)
[2018-04-29] MEDS: ERTAPENEM SOD INJ 1 GM in SODIUM CHL 0.9% 50 ML IV SCH (10:05)
[2018-04-29 12:19] VITALS: BP 86/55
[2018-04-29] MEDS: DOBUTamine 1000MCG/ML 250 ML IV SCH (15:00)
[2018-04-29 16:59] VITALS: BP 83/57
--- NOTE | 2018-04-29 17:14 | NUR ---
re-assessment Per consult hospice for end stage heart failure. Darya patients daughter has been notified for consult and read a list of medicare providers over the phone. Per Darya she has no preference on who evaluates patient. [facility] has been sent MD order. Christina from [facility] has met with patient and family. Per Darya patient will go home to her sisters house in [place]. Per Christina she can provide service in [place]. Family will sign consents in the AM and equipment to be delivered. Waiting on discharge now. Addendum: 04/29/18 at 1718 by Destiney ROJAS Amended: Links added.
--- NOTE | 2018-04-29 19:26 | NUR ---
ENDORSED CARE TO JYOTI GONZALEZ.
--- NOTE | 2018-04-29 19:30 | NUR ---
OPENING NOTE REPORT RECEIVED FROM DAY SHIFT RN PATIENT IS A/OX4 RESTING IN BED, ON 2L NC, WITH SPO2 AT 94%. MIDLINE NOTED TO RIGHT UPPER ARM, INTACT AND RUNNING CONTINUOUS DOBUTAMINE DRIP AT 6.87ML/HR PER MD/PHARMACY PROTOCOL. FULL PHYSICAL ASSESSMENT DONE. SKIN ALL INTACT. NONBLANCHABLE REDNESS/HYPERPIGMENTATION NOTED TO SACRUM.OPTIFOAM TO SACRUM PREVENTATIVE. PT TO BE TURNED Q2H THROUGHOUT SHIFT. LOPEZ DRAINING LIGHT OMER URINE TO GRAVITY. POC DISCUSSED. CALL LIGHT WITHIN REACH. FALL PRECAUTIONS IN PLACE.
[2018-04-29] MEDS: ATORVASTATIN 20 MG TAB PO SCH (21:47)
[2018-04-29 22:00] VITALS: BP 86/57
[2018-04-30] MEDS: AMPICILLIN INJ 1 GM in SODIUM CHL 0.9% 50 ML IV SCH ×3 (02:29→15:00)
[2018-04-30 04:58] VITALS: BP 80/53
--- NOTE | 2018-04-30 05:00 | NUR ---
PAGED HOSPITALIST RE: PATIENTS MORNING BP OF 80/53 WILL WAIT FOR CALL BACK
--- NOTE | 2018-04-30 05:44 | NUR ---
AM CARES PATIENT REFUSED GOWN CHANGE THIS MORNING PATIENT STATES SHE IS NOT UP FOR IT AT THIS TIME
--- NOTE | 2018-04-30 05:58 | NUR ---
SPOKE WITH HOSPITALIST ANASTASIA RE:LOW BP NO NEW ORDERS AT THIS TIME WILL CONTINUE TO MONITOR CLOSELY
[2018-04-30] MEDS: HEPARIN SODIUM (PORCINE) 5000 UNITS/ML 1ML VIAL SC SCH ×2 (06:00→14:00)
[2018-04-30] MEDS: DEMECLOCYCLINE HCL 150 MG TAB PO SCH ×3 (06:02→17:23)
[2018-04-30] MEDS: MIDODRINE HCL 10 MG TAB PO SCH ×3 (06:02→17:23)
[2018-04-30] MEDS: LEVOTHYROXINE SODIUM 25 MCG TAB PO SCH (06:02)
[2018-04-30] MEDS: INSULIN LANTUS (GLARGINE) 1 /0.01ml (100units/ml) SC SCH (06:03)
[2018-04-30] MEDS: InsuLIN REG 1unit/0.01ml Soln (100units/ml) SC SCH ×2 (06:03→11:30)
[2018-04-30] MEDS: ACCU-CHEK COMFORT CURVE STRIP VI SCH ×2 (06:04→13:03)
--- NOTE | 2018-04-30 06:05 | NUR ---
IRVIN HELD THIS AM PATIENTS GLUCOSE READING AT 86 PATIENT DID NOT EAT DINNER AND REFUSES ANY FOOD. WILL HOLD LANTUS AT THIS TIME
--- NOTE | 2018-04-30 06:45 | NUR ---
BM PATIENT HAD SMALL FORMED BM. PATIENT CLEANED UP PATIENT STILL REFUSED GOWN CHANGE AT THIS TIME PT REQUESTING FOR HER DAUGHTER TO COME LATER AND GIVE HER A BATH. PATIENT REFUSES ANY HYGIENE CARE AT THIS TIME
--- NOTE | 2018-04-30 07:27 | NUR ---
CLOSING NOTE REPORT ENDORSED TO DAY SHIFT RN PATIENT IS RESTING IN BED COMFORTABLY. NO S/S OF DISTRESS NOTED. PT TURNED Q2H THROUGHOUT SHIFT, REFUSED AM CARE/HYGIENE CARE. LOPEZ INTACT AND DRAINING TO GRAVITY CALL LIGHT WITHIN REACH
--- NOTE | 2018-04-30 07:48 | NUR ---
Opening Shift Note Assumed care of patient, awake and alert. NC at 2L, breath sounds even and unlabored. No S/S of distress/SOB or pain. Bed at lowest position and call light within reach . Instructed on POC and to call for assist PRN, will continue to monitor for changes Q1hr and PRN.
[2018-04-30 07:59] VITALS: BP 89/62
[2018-04-30 08:00] VITALS: BP 89/62
[2018-04-30] MEDS: BUMETANIDE 1 MG TAB PO SCH (10:00)
[2018-04-30] MEDS: SPIRONOLACTONE 25 MG TAB PO SCH (10:00)
[2018-04-30] MEDS: PANTOPRAZOLE 40 MG TAB PO SCH (10:21)
[2018-04-30] MEDS: CLOPIDOGREL BISULFATE 75 MG TAB PO SCH (10:22)
[2018-04-30] MEDS: ASPirin-EC 81 mg tab PO SCH (10:22)
[2018-04-30] MEDS: Glucerna Carbsteady SHAKE Vanilla 8oz PO SCH (10:24)
[2018-04-30] MEDS: ERTAPENEM SOD INJ 1 GM in SODIUM CHL 0.9% 50 ML IV SCH (10:24)
[2018-04-30] MEDS: SODIUM POLYSTYRENE SULF 15GM/60ml SUSP or POWDER PO SCH ×2 (10:26→10:37)
[2018-04-30 11:37] VITALS: BP 84/56
--- NOTE | 2018-04-30 12:00 | NUR ---
PATIENT HAD A SMALL BM, CLEANSED BUTTOCKS/NASRIN-AREA WITH WASHCLOTH AND WARM WATER, PATTED DRY, APPLIED ZGUARD AND APPLIED A NEW OPTIFOAM. PATIENT TOLERATED WELL.
--- NOTE | 2018-04-30 14:08 | NUR ---
re-assessment All consents are signed and patient will go home with her sister Meghan [facility] [address] [facility] [address]. Patient will be transported by [facility] at 530pm post discharge today. Patient and daughter Darya agreed with discharge plan home on hospice. Addendum: 04/30/18 at 1410 by Destiney ROJAS Amended: Links added.
--- NOTE | 2018-04-30 15:45 | NUR ---
Contacted patients sister Meghan to inform her of discharge and transportation time. No answer. Left message.
[2018-04-30] MEDS: DOBUTamine 1000MCG/ML 250 ML IV SCH (16:06)
[2018-04-30 16:53] VITALS: BP 92/56
--- NOTE | 2018-04-30 17:48 | NUR ---
Called patients sister Meghan, again,informed her of discharge and that transportation were here to tow picker patient. Meghan verbalized understating.
--- NOTE | 2018-04-30 18:04 | NUR ---
Discharge instructions given as ordered. Patient A&O x4, on 2L NC, no c/o pain. Patient encouraged to follow up with PMD as instructed. All questions and concerns addressed. Patient verbalized understanding. Telemetry unit returned to ICU. Patient taken to vehicle via [facility] by [facility] with all personal belongings, No distress noted at time of departure.
== END 2018-04-30 17:47 | disposition hospice, home (50) | DRG 174 ==
LOC: EDBD 07:21 → ER 07:21 → TELE 09:42 → TELE-WESTW 12:43
PROVIDERS: ADMIT Nurse Practitioner Acute Care; ATTEND Internal Medicine
PROC: 027034Z Dilation of Coronary Artery, One Artery with Drug-eluting Intraluminal Device, Percutaneous Approach (ICD-10-PCS; principal; 2018-04-13)
DX: I21.4 Non-ST elevation (NSTEMI) myocardial infarction (principal); N17.0 Acute kidney failure with tubular necrosis; I50.43 Acute on chronic combined systolic (congestive) and diastolic (congestive) heart failure; E44.0 Moderate protein-calorie malnutrition; I95.9 Hypotension, unspecified; E11.22 Type 2 diabetes mellitus with diabetic chronic kidney disease; E87.1 Hypo-osmolality and hyponatremia; E11.65 Type 2 diabetes mellitus with hyperglycemia; I13.0 Hypertensive heart and chronic kidney disease with heart failure and stage 1 through stage 4 chronic kidney disease, or unspecified chronic kidney disease; I50.84 End stage heart failure; E87.5 Hyperkalemia; I25.10 Atherosclerotic heart disease of native coronary artery without angina pectoris; N18.4 Chronic kidney disease, stage 4 (severe); I25.5 Ischemic cardiomyopathy; N39.0 Urinary tract infection, site not specified; B96.20 Unspecified Escherichia coli [E. coli] as the cause of diseases classified elsewhere; D63.8 Anemia in other chronic diseases classified elsewhere; B95.2 Enterococcus as the cause of diseases classified elsewhere; E78.5 Hyperlipidemia, unspecified; I08.1 Rheumatic disorders of both mitral and tricuspid valves; K21.9 Gastro-esophageal reflux disease without esophagitis; R18.8 Other ascites; Z51.5 Encounter for palliative care; Z95.810 Presence of automatic (implantable) cardiac defibrillator; Z90.49 Acquired absence of other specified parts of digestive tract; Z88.8 Allergy status to other drugs, medicaments and biological substances; Z79.4 Long term (current) use of insulin; Z79.82 Long term (current) use of aspirin; Z79.899 Other long term (current) drug therapy; Z82.49 Family history of ischemic heart disease and other diseases of the circulatory system; Z83.3 Family history of diabetes mellitus; Z86.73 Personal history of transient ischemic attack (TIA), and cerebral infarction without residual deficits; Z68.36 Body mass index [BMI] 36.0-36.9, adult
CPT/HCPCS: 36415; 71045; 76775; 80048; 80053; 80076; 81001; 82306; 82570; 82962; 83036; 83735; 83880; 84100; 84132; 84156; 84300; 84439; 84443; 84484; 84550; 85014; 85018; 85025; 85610; 85730; 86850; 86900; 86901; 87086; 87088; 87186; 93005; 93970; 94644; 96365; 96375; 97110; 97116; 97163; 97530; 99152; A6257; C1874; C1887; G0378; J0610; J1335; J1450; J1815; J2250; J2405; Q9967